=== PATIENT | female | born 1970 | race Caucasian/White ===

== ENCOUNTER → 2016-11-18 | Outpatient (REF) | payer BC, OTHER ==
[~2016-11-18] MED LIST: NAPROXIN PO; SPORANOX PO; VICO5TAB OR
== END ==
LOC: M LAB REF 18:41
PROVIDERS: ATTEND Physician Assistant Medical
DX: J11.1 Influenza due to unidentified influenza virus with other respiratory manifestations (principal)

== ENCOUNTER → 2017-01-22 | Outpatient (CLI) | payer BC, OTHER ==
[2017-01-22 08:42] LABS: MEAN CORPUSCULAR HEMOGLOBIN 29.6 pg (27.0-33.0); MEAN CORPUSCULAR HGB CONC 35.2 g/dl (32.0-36.5); MEAN CORPUSCULAR VOLUME 84.1 fl (80.0-96.0); RED CELL DISTRIBUTION WIDTH 13.3 % (11.5-14.5)
--- NOTE | 2017-01-22 09:09 | REP ---
PA and lateral chest: Comparisons are 12/20/2013 and . There is chronic effacement of the left costophrenic angle, unchanged, likely pleural adhesion. The lung ramires otherwise clear. Cardiac size is normal. The melissa, mediastinum, and bony thorax are unremarkable. 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 Otherwise, essentially negative PA and lateral chest. Signed by Homer Lackey MD 01/22/2017 09:00 A
[2017-01-22 09:23] LABS: ALBUMIN 4.1 GM/DL (3.2-5.2); ALBUMIN/GLOBULIN RATIO 1.11 (1.00-1.93); ALKALINE PHOSPHATASE 126 U/L (45-117); ALT/SGPT 84 U/L (12-78); ANION GAP 2 MEQ/L (8-16); AST/SGOT 45 U/L (15-37); BILIRUBIN,TOTAL 0.4 MG/DL (0.2-1.0); BLOOD UREA NITROGEN 17 MG/DL (7-18); CARBON DIOXIDE LEVEL 35 MEQ/L (21-32); CHLORIDE LEVEL 100 MEQ/L (98-107); CHOLESTEROL LEVEL 123 MG/DL (<200); CREATININE FOR GFR 0.77 MG/DL (0.55-1.02); GLOMERULAR FILTRATION RATE > 60.0 (>58); GLUCOSE, FASTING 92 MG/DL (70-105); POTASSIUM SERUM 3.5 MEQ/L (3.5-5.1); SODIUM LEVEL 137 MEQ/L (136-145); THYROXINE (T4) 18.7 UG/DL (4.5-12.0); TOTAL PROTEIN 7.8 GM/DL (6.4-8.2); TRIGLYCERIDES LEVEL 104 MG/DL (<150)
--- NOTE | 2017-01-22 11:27 | ECGEPIP ---
Stationary ECG Study [facility] Test Date: 2017-01-22 Pat Name: LUIS SAUNDERS Department: Room: - Gender: F Saw Superintendent: JEREMY : 1970 Requested By: Lidia Baker Order Number: [id number] Reading MD: Lalo Aranda Measurements Intervals [place] Rate: 55 P: 72 CT: 157 QRS: -9 QRSD: 109 T: 38 QT: 420 QTc: 404 Interpretive Statements SINUS BRADYCARDIA Rate slightly slower than tracing from 02-16-16 Electronically Signed On 01-22-2017 11:27:18 EDT by aLlo Aranda
== END ==
LOC: M LAB 08:02
PROVIDERS: ATTEND Family Medicine
DX: I10 Essential (primary) hypertension (principal); R53.83 Other fatigue

== ENCOUNTER → 2017-11-05 | Outpatient (CLI) | payer BC, OTHER | LOC: M ADAMS 16:33 | DX: R07.1 Chest pain on breathing (principal) | CPT/HCPCS: 71046 ==

== ENCOUNTER 2018-02-05 09:09 | Emergency (ER) | payer BC, OTHER ==
[2018-02-05 09:40] LABS: BASO % 0.5 % (0.0-1.0); EOS # 0.2 10^3/uL (0.0-0.50); EOS % 2.8 % (0.0-3.0); HEMOGLOBIN 14.8 g/dl (12.0-15.5); IMMATURE GRANULOCYTE % 0.4 % (0-3.0); LYMPH # 2.5 10^3/uL (1.5-4.5); LYMPH % 29.7 % (24.0-44.0); MEAN CORPUSCULAR HEMOGLOBIN 28.7 pg (27.0-33.0); MEAN CORPUSCULAR HGB CONC 34.4 g/dl (32.0-36.5); MEAN CORPUSCULAR VOLUME 83.5 fl (80.0-96.0); MONO # 0.5 10^3/uL (0.0-0.8); MONO % 6.5 % (0.0-5.0); NEUTROPHILS % 60.1 % (36.0-66.0); PLATELET COUNT, AUTOMATED 289 10^3/uL (150-450); RED BLOOD COUNT 5.15 10^6/uL (4.00-5.40); RED CELL DISTRIBUTION WIDTH 12.8 % (11.5-14.5); WHITE BLOOD COUNT 8.3 10^3/uL (4.0-10.0)
[2018-02-05] MEDS: ASPIRIN 81 MG CHEW TABLET PO (09:57)
[2018-02-05 10:16] LABS: ANION GAP 8 MEQ/L (8-16); BLOOD UREA NITROGEN 14 MG/DL (7-18); CALCIUM LEVEL 9.5 MG/DL (8.5-10.1); CARBON DIOXIDE LEVEL 28 MEQ/L (21-32); CHLORIDE LEVEL 105 MEQ/L (98-107); CK-MB VALUE MASS 1.7 NG/ML (<3.6); CPK CREATINE PHOSPHOKINASE 146 U/L (26-192); CREATININE FOR GFR 0.85 MG/DL (0.55-1.30); GLOMERULAR FILTRATION RATE > 60.0 (>58); GLUCOSE, FASTING 138 MG/DL (70-100); MAGNESIUM LEVEL 1.9 MG/DL (1.8-2.4); MB/CK RELATIVE INDEX 1.16 (< OR =4); POTASSIUM SERUM 3.6 MEQ/L (3.5-5.1); SODIUM LEVEL 141 MEQ/L (136-145); TROPONIN I < 0.02 NG/ML (< 0.10)
[2018-02-05] MEDS ORDERED: ISOVUE-370 76% 100ML VIAL (Q9967) As Ordered (10:33)
[2018-02-05 14:35] LABS: CPK CREATINE PHOSPHOKINASE 126 U/L (26-192); TROPONIN I < 0.02 NG/ML (< 0.10)
[2018-02-05 14:36] LABS: CK-MB VALUE MASS 1.7 NG/ML (<3.6); MB/CK RELATIVE INDEX 1.34 (< OR =4)
== END 2018-02-05 15:02 | disposition home or self-care (01) ==
LOC: M ED 09:09
DX: I95.1 Orthostatic hypotension (principal); I10 Essential (primary) hypertension; R91.1 Solitary pulmonary nodule; R91.8 Other nonspecific abnormal finding of lung field; E03.9 Hypothyroidism, unspecified; F33.9 Major depressive disorder, recurrent, unspecified; K80.20 Calculus of gallbladder without cholecystitis without obstruction; Z98.890 Other specified postprocedural states; Z82.49 Family history of ischemic heart disease and other diseases of the circulatory system; Z79.890 Hormone replacement therapy; Z79.899 Other long term (current) drug therapy
CPT/HCPCS: Q9967

== ENCOUNTER → 2018-03-23 | Outpatient (CLI) | payer BC, OTHER ==
[2018-03-23 07:55] LABS: HEMATOCRIT 43.6 % (36.0-47.0); MEAN CORPUSCULAR HEMOGLOBIN 28.6 pg (27.0-33.0); MEAN CORPUSCULAR HGB CONC 34.4 g/dl (32.0-36.5); MEAN CORPUSCULAR VOLUME 83.2 fl (80.0-96.0); PLATELET COUNT, AUTOMATED 314 10^3/uL (150-450); RED BLOOD COUNT 5.24 10^6/uL (4.00-5.40); RED CELL DISTRIBUTION WIDTH 12.7 % (11.5-14.5); WHITE BLOOD COUNT 7.3 10^3/uL (4.0-10.0)
[2018-03-23 08:42] LABS: ALBUMIN 3.7 GM/DL (3.2-5.2); ALBUMIN/GLOBULIN RATIO 0.93 (1.00-1.93); ALKALINE PHOSPHATASE 151 U/L (45-117); ALT/SGPT 66 U/L (12-78); ANION GAP 9 MEQ/L (8-16); AST/SGOT 29 U/L (7-37); BILIRUBIN,TOTAL 0.4 MG/DL (0.2-1.0); BLOOD UREA NITROGEN 15 MG/DL (7-18); CARBON DIOXIDE LEVEL 26 MEQ/L (21-32); CHLORIDE LEVEL 106 MEQ/L (98-107); CHOLESTEROL LEVEL 127 MG/DL (<200); CHOLESTEROL RISK RATIO 3.023 (<5); CREATININE FOR GFR 0.74 MG/DL (0.55-1.30); GLOMERULAR FILTRATION RATE > 60.0 (>58); GLUCOSE, FASTING 97 MG/DL (70-100); HDL CHOLESTEROL 42 MG/DL (>40); LDL CHOLESTEROL 44.2 MG/DL (<100); NON-HDL-C 85 MG/DL; POTASSIUM SERUM 3.6 MEQ/L (3.5-5.1); SODIUM LEVEL 141 MEQ/L (136-145); THYROID STIMULATING HORMONE < 0.005 uIU/ML (0.358-3.740); TOTAL PROTEIN 7.7 GM/DL (6.4-8.2); TRIGLYCERIDES LEVEL 204 MG/DL (<150)
[2018-03-23 10:00] LABS: ESTIMATED AVERAGE GLUCOSE 114 MG/DL (60-110); HEMOGLOBIN A1c 5.6 %
[2018-03-23 10:35] LABS: TOTAL 25(OH) VITAMIN D 30.7 NG/ML (30.0-100.0)
== END ==
LOC: M LAB 06:58
DX: E03.9 Hypothyroidism, unspecified (principal); R53.83 Other fatigue; I10 Essential (primary) hypertension
CPT/HCPCS: 93005

== ENCOUNTER → 2018-10-09 | Outpatient (CLI) | payer BC, OTHER ==
[~2018-10-09] MED LIST changes: +LEVO150T7; +SERT-155; +SIMV20TA2; +TRIA37.53
--- NOTE | 2018-10-10 02:45 | REP ---
Clinical: Recurrent sinusitis. Technique: Mejia, PA, lateral and SMV views. Findings: Four total views demonstrate well-aerated paranasal sinuses and mastoid air cells without mucosal thickening or fluid levels. The osseous structures are intact and normal. No foreign body identified. Impression: Normal sinus study. Electronically Signed by Ken Hutson MD 10/10/2018 02:36 A
== END ==
LOC: M SMT 13:21
PROVIDERS: ATTEND Physician Assistant
DX: J32.9 Chronic sinusitis, unspecified (principal)

== ENCOUNTER → 2018-10-12 | Outpatient (CLI) | payer BC, OTHER ==
[2018-10-12 08:05] LABS: HEMOGLOBIN 15.2 g/dl (12.0-15.5); MEAN CORPUSCULAR HEMOGLOBIN 29.1 pg (27.0-33.0); MEAN CORPUSCULAR HGB CONC 34.5 g/dl (32.0-36.5); MEAN CORPUSCULAR VOLUME 84.1 fl (80.0-96.0); PLATELET COUNT, AUTOMATED 341 10^3/uL (150-450); RED BLOOD COUNT 5.23 10^6/uL (4.00-5.40); WHITE BLOOD COUNT 8.3 10^3/uL (4.0-10.0)
[2018-10-12 08:32] LABS: HEMOGLOBIN A1c 5.9 %
[2018-10-12 08:36] LABS: ALBUMIN 4.1 GM/DL (3.2-5.2); BILIRUBIN,TOTAL 0.4 MG/DL (0.2-1.0); CHOLESTEROL RISK RATIO 4.34 (<5); CREATININE FOR GFR 1.3 MG/DL (0.55-1.30); GLOMERULAR FILTRATION RATE 46.2 (>51); POTASSIUM SERUM 3.8 MEQ/L (3.5-5.1); THYROID STIMULATING HORMONE 0.928 uIU/ML (0.358-3.740); TOTAL PROTEIN 7.8 GM/DL (6.4-8.2)
--- NOTE | 2018-10-12 08:43 | REP ---
Clinical: Primary hypertension . Comparison: 02/05/2018 . Technique: PA and lateral. Findings: The mediastinum and cardiac silhouette are normal. The lung ramires are clear and without acute consolidation, effusion, or pneumothorax. The skeletal structures are intact and normal. Impression: 1. No acute cardiopulmonary process. Electronically Signed by Ken Hutson MD 10/12/2018 08:35 A
--- NOTE | 2018-10-13 21:40 | ECGEPIP ---
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 Electronically Signed On 10-13-2018 21:40:16 EST by Lalo Horta
== END ==
LOC: M LAB 07:32
PROVIDERS: ATTEND Family Medicine
DX: I10 Essential (primary) hypertension (principal); E03.9 Hypothyroidism, unspecified

== ENCOUNTER → 2018-10-16 | Outpatient (CLI) | payer BC, OTHER ==
--- NOTE | 2018-10-16 09:55 | REP ---
MAXILLOFACIAL CT WITHOUT CONTRAST: HISTORY: Recurrent maxillary sinusitis. Mild mucosal thickening is present in the right maxillary sinus. The remaining sinuses are clear. The ostiomeatal units are patent. The middle and inferior nasal turbinates are partially paradoxical. There is minimal deviation of the nasal septum to the left. The cribriform plate, medial samuel of the orbits and optic canals are intact. The carotid canals form a segment of the posterolateral samuel of the sphenoid sinus. The sphenoid sinus septum inserts into the left internal carotid canal wall. IMPRESSION: Sinus mucosal thickening as described above. Electronically Signed by Jose Sanabria MD 10/16/2018 10:05 A
== END ==
LOC: M RAD 08:57
PROVIDERS: ATTEND Family Medicine
DX: J01.01 Acute recurrent maxillary sinusitis (principal)

== ENCOUNTER → 2019-02-23 | Outpatient (CLI) | payer BC, OTHER ==
[2019-02-23 08:15] LABS: HEMATOCRIT 45.4 % (36.0-47.0); HEMOGLOBIN 15.3 g/dl (12.0-15.5); MEAN CORPUSCULAR HEMOGLOBIN 29.4 pg (27.0-33.0); MEAN CORPUSCULAR HGB CONC 33.7 g/dl (32.0-36.5); MEAN CORPUSCULAR VOLUME 87.3 fl (80.0-96.0); PLATELET COUNT, AUTOMATED 310 10^3/uL (150-450); WHITE BLOOD COUNT 7.1 10^3/uL (4.0-10.0)
[2019-02-23 08:51] LABS: HEMOGLOBIN A1c 5.8 %
[2019-02-23 08:56] LABS: ALT/SGPT 71 U/L (12-78); BILIRUBIN,TOTAL 0.3 MG/DL (0.2-1.0); BLOOD UREA NITROGEN 15 MG/DL (7-18); CALCIUM LEVEL 9.7 MG/DL (8.5-10.1); CARBON DIOXIDE LEVEL 27 MEQ/L (21-32); CHLORIDE LEVEL 104 MEQ/L (98-107); CHOLESTEROL LEVEL 166 MG/DL (<200); CREATININE FOR GFR 0.86 MG/DL (0.55-1.30); GLOMERULAR FILTRATION RATE > 60.0 (>51); GLUCOSE, FASTING 106 MG/DL (70-100); HDL CHOLESTEROL 40 MG/DL (>40); LDL CHOLESTEROL 90 MG/DL (<100); NON-HDL-C 126 MG/DL; POTASSIUM SERUM 4.1 MEQ/L (3.5-5.1); SODIUM LEVEL 139 MEQ/L (136-145); TOTAL PROTEIN 7.7 GM/DL (6.4-8.2); TRIGLYCERIDES LEVEL 181 MG/DL (<150)
--- NOTE | 2019-02-23 08:58 | REP ---
Clinical: Hypertension . Comparison: 10/12/2018 . Technique: PA and lateral. Findings: The mediastinum and cardiac silhouette are normal. The lung ramires are clear and without acute consolidation, effusion, or pneumothorax. Postsurgical changes at the left hilar region noted. The skeletal structures are intact and normal. Impression: 1. No acute cardiopulmonary process. Electronically Signed by Ken Hutson MD 02/23/2019 08:51 A
[2019-02-23 10:03] LABS: TOTAL 25(OH) VITAMIN D 20.9 NG/ML (30.0-100.0)
[2019-02-23 10:04] LABS: TOTAL T3 151.4 NG/DL (60.0-181.0)
--- NOTE | 2019-02-23 12:13 | ECGEPIP ---
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
== END ==
LOC: M LAB 07:09
PROVIDERS: ATTEND Family Medicine
DX: I10 Essential (primary) hypertension (principal); E03.9 Hypothyroidism, unspecified

== ENCOUNTER 2019-08-03 06:36 | Emergency (ER) | payer BC, OTHER ==
[~2019-08-03] VITALS: Ht 154.9 cm; Wt 100.0 kg
[2019-08-03 06:36] VITALS: BP 146/92
[~2019-08-03 06:36] MED LIST changes: -SERT-155; +SERT50TA29
[2019-08-03] MEDS ORDERED: CHOL100029 PO (06:48)
[2019-08-03] MEDS ORDERED: TYLETAB14 PO (06:49)
[2019-08-03] MEDS ORDERED: KETOROLAC 30 MG/ML VIAL (J1885) IM ONE (07:00)
[2019-08-03] MEDS ORDERED: KETO10TAB PO (07:45)
[2019-08-03] MEDS ORDERED: ROBA750T4 PO (07:47)
== END 2019-08-03 07:54 | disposition home or self-care (01) ==
LOC: M ED 06:36
DX: M54.42 Lumbago with sciatica, left side (principal); I10 Essential (primary) hypertension; E78.5 Hyperlipidemia, unspecified; E03.9 Hypothyroidism, unspecified; Z79.899 Other long term (current) drug therapy; Z79.890 Hormone replacement therapy
CPT/HCPCS: 96372; 99283; J1885

== ENCOUNTER → 2019-09-17 | Outpatient (CLI) | payer BC, OTHER ==
[~2019-09-17] MED LIST changes: +CHOL100029 PO; +KETO10TAB PO; +ROBA750T4 PO; -SIMV20TA2; +SIMV20TA22; +TYLETAB14 PO
[2019-09-17 14:05] LABS: BASO # 0.1 10^3/uL (0.0-0.2); BASO % 0.9 % (0.0-1.0); EOS # 0.3 10^3/uL (0.0-0.5); EOS % 3.2 % (0.0-3.0); HEMATOCRIT 44.3 % (36.0-47.0); LYMPH # 2.8 10^3/uL (1.5-5.0); LYMPH % 27.7 % (24.0-44.0); MEAN CORPUSCULAR HEMOGLOBIN 30.1 pg (27.0-33.0); MEAN CORPUSCULAR HGB CONC 33.9 g/dl (32.0-36.5); MONO # 0.9 10^3/uL (0.0-0.8); MONO % 8.4 % (0.0-5.0); NEUTROPHILS % 59.3 % (36.0-66.0); PLATELET COUNT, AUTOMATED 378 10^3/uL (150-450); RED BLOOD COUNT 4.98 10^6/uL (4.00-5.40); WHITE BLOOD COUNT 10.1 10^3/uL (4.0-10.0)
[2019-09-17 14:26] LABS: HEMOGLOBIN A1c 6.2 %
[2019-09-17 14:37] LABS: ALBUMIN 4.3 GM/DL (3.2-5.2); ALT/SGPT 152 U/L (12-78); BILIRUBIN,TOTAL 0.4 MG/DL (0.2-1.0); BLOOD UREA NITROGEN 13 MG/DL (7-18); CALCIUM LEVEL 9.2 MG/DL (8.5-10.1); CARBON DIOXIDE LEVEL 27 MEQ/L (21-32); CHLORIDE LEVEL 103 MEQ/L (98-107); CREATININE FOR GFR 0.96 MG/DL (0.55-1.30); GLOMERULAR FILTRATION RATE > 60.0 (>51); GLUCOSE, FASTING 131 MG/DL (70-100); POTASSIUM SERUM 3.9 MEQ/L (3.5-5.1); SODIUM LEVEL 136 MEQ/L (136-145); TOTAL PROTEIN 8.5 GM/DL (6.4-8.2)
== END ==
LOC: M PLALAB 11:55
PROVIDERS: ATTEND Surgery
DX: Z01.812 Encounter for preprocedural laboratory examination (principal); Z86.39 Personal history of other endocrine, nutritional and metabolic disease; I10 Essential (primary) hypertension; E78.5 Hyperlipidemia, unspecified; G47.33 Obstructive sleep apnea (adult) (pediatric); E03.9 Hypothyroidism, unspecified

== ENCOUNTER → 2019-10-09 | Outpatient (CLI) | payer BC, OTHER ==
[2019-10-09 09:47] LABS: HEMATOCRIT 46.6 % (36.0-47.0); HEMOGLOBIN 15.1 g/dl (12.0-15.5); MEAN CORPUSCULAR HEMOGLOBIN 29.2 pg (27.0-33.0); MEAN CORPUSCULAR HGB CONC 32.4 g/dl (32.0-36.5); MEAN CORPUSCULAR VOLUME 90.1 fl (80.0-96.0); PLATELET COUNT, AUTOMATED 287 10^3/uL (150-450); RED BLOOD COUNT 5.17 10^6/uL (4.00-5.40); WHITE BLOOD COUNT 7.7 10^3/uL (4.0-10.0)
[2019-10-09 10:08] LABS: INR 1.07; PROTHROMBIN TIME 13.6 SECONDS (11.8-14.0)
[2019-10-09 12:03] LABS: ALT/SGPT 110 U/L (12-78); BILIRUBIN,TOTAL 0.6 MG/DL (0.2-1.0); BLOOD UREA NITROGEN 13 MG/DL (7-18); CALCIUM LEVEL 9.6 MG/DL (8.5-10.1); CARBON DIOXIDE LEVEL 24 MEQ/L (21-32); CHLORIDE LEVEL 106 MEQ/L (98-107); CHOLESTEROL LEVEL 188 MG/DL (<200); CREATININE FOR GFR 0.93 MG/DL (0.55-1.30); GLOMERULAR FILTRATION RATE > 60.0 (>51); GLUCOSE, FASTING 99 MG/DL (70-100); HDL CHOLESTEROL 39 MG/DL (>40); LDL CHOLESTEROL 114 MG/DL (<100); NON-HDL-C 149 MG/DL; POTASSIUM SERUM 4.1 MEQ/L (3.5-5.1); SODIUM LEVEL 139 MEQ/L (136-145); THYROXINE (T4) 12.6 UG/DL (4.5-12.0); TOTAL PROTEIN 8.3 GM/DL (6.4-8.2); TOTAL T3 134.1 NG/DL (60.0-181.0); TRIGLYCERIDES LEVEL 173 MG/DL (<150)
--- NOTE | 2019-10-09 12:17 | ECGEPIP ---
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 No significant change compared with 02/23/2019. Electronically Signed on 10-09-2019 12:17:04 EST by Lalo Horta
[2019-10-09 15:47] LABS: HEMOGLOBIN A1c 5.8 %
--- NOTE | 2019-10-09 18:39 | REP ---
Chest x-ray: Two views. History: Hypertension. Comparison chest x-ray: February 23, 2019. Findings: There is a post thoracotomy suture line in the left perihilar region unchanged. There is tenting and elevation of the left hemidiaphragm also unchanged consistent with fibrosis. Posterior pleural angles are sharp. Lung ramires are otherwise clear. Heart is not enlarged. Pulmonary vasculature is not increased. Impression: Post thoracotomy changes on the left. No acute disease. Electronically Signed by Yared Hawkins MD 10/09/2019 06:31 P
== END ==
LOC: M LAB 09:17
PROVIDERS: ATTEND Family Medicine
DX: Z01.818 Encounter for other preprocedural examination (principal); I10 Essential (primary) hypertension; E11.9 Type 2 diabetes mellitus without complications

== ENCOUNTER → 2019-11-23 | Outpatient (CLI) | payer BC, OTHER ==
[2019-11-23 16:00] LABS: BASO # 0.1 10^3/uL (0.0-0.2); BASO % 0.7 % (0.0-1.0); EOS # 0.3 10^3/uL (0.0-0.5); EOS % 3.4 % (0.0-3.0); HEMOGLOBIN 14.2 g/dl (12.0-15.5); LYMPH # 2.5 10^3/uL (1.5-5.0); LYMPH % 33.3 % (24.0-44.0); MEAN CORPUSCULAR HEMOGLOBIN 29.6 pg (27.0-33.0); MEAN CORPUSCULAR VOLUME 89.6 fl (80.0-96.0); MONO # 0.7 10^3/uL (0.0-0.8); MONO % 8.9 % (0.0-5.0); NEUTROPHILS % 53.6 % (36.0-66.0); PLATELET COUNT, AUTOMATED 218 10^3/uL (150-450); WHITE BLOOD COUNT 7.4 10^3/uL (4.0-10.0)
[2019-11-23 16:16] LABS: HEMOGLOBIN A1c 5.6 %
[2019-11-23 16:26] LABS: ALBUMIN 4.4 GM/DL (3.2-5.2); ALT/SGPT 55 U/L (12-78); BILIRUBIN,TOTAL 0.5 MG/DL (0.2-1.0); BLOOD UREA NITROGEN 10 MG/DL (7-18); CALCIUM LEVEL 9.7 MG/DL (8.5-10.1); CARBON DIOXIDE LEVEL 30 MEQ/L (21-32); CHLORIDE LEVEL 106 MEQ/L (98-107); CREATININE FOR GFR 0.69 MG/DL (0.55-1.30); FERRITIN 133 NG/ML (8-252); GLOMERULAR FILTRATION RATE > 60.0 (>51); GLUCOSE, FASTING 70 MG/DL (70-100); IRON (FE) 58 UG/DL (50-170); MAGNESIUM LEVEL 2.1 MG/DL (1.8-2.4); PERCENT SATURATION 19.5 % (13.2-45.0); PHOSPHORUS LEVEL 2.7 MG/DL (2.5-4.9); POTASSIUM SERUM 4.3 MEQ/L (3.5-5.1); SODIUM LEVEL 139 MEQ/L (136-145); TOTAL IRON BINDING CAPACITY 298 UG/DL (250-450); TOTAL PROTEIN 7.6 GM/DL (6.4-8.2)
[2019-11-23 16:28] LABS: VITAMIN B12 LEVEL > 2000 PG/ML (247-911)
== END ==
LOC: M PLALAB 11:45
PROVIDERS: ATTEND Surgery
DX: K91.2 Postsurgical malabsorption, not elsewhere classified (principal); Z98.84 Bariatric surgery status; E55.9 Vitamin D deficiency, unspecified; Z86.39 Personal history of other endocrine, nutritional and metabolic disease

== ENCOUNTER → 2020-03-08 | Outpatient (CLI) | payer BC, OTHER ==
[2020-03-08 11:30] LABS: HEMOGLOBIN 14.5 g/dl (12.0-15.5); MEAN CORPUSCULAR HEMOGLOBIN 28.4 pg (27.0-33.0); MEAN CORPUSCULAR HGB CONC 32.2 g/dl (32.0-36.5); MEAN CORPUSCULAR VOLUME 88.2 fl (80.0-96.0); PLATELET COUNT, AUTOMATED 263 10^3/uL (150-450); WHITE BLOOD COUNT 7.1 10^3/uL (4.0-10.0)
[2020-03-08 11:36] LABS: ALT/SGPT 40 U/L (12-78); BILIRUBIN,TOTAL 0.4 MG/DL (0.2-1.0); BLOOD UREA NITROGEN 13 MG/DL (7-18); CALCIUM LEVEL 9.4 MG/DL (8.5-10.1); CARBON DIOXIDE LEVEL 31 MEQ/L (21-32); CHLORIDE LEVEL 108 MEQ/L (98-107); CREATININE FOR GFR 0.75 MG/DL (0.55-1.30); GLOMERULAR FILTRATION RATE > 60.0 (>51); GLUCOSE, FASTING 85 MG/DL (70-100); IRON (FE) 80 UG/DL (50-170); PERCENT SATURATION 26.8 % (13.2-45.0); POTASSIUM SERUM 4.3 MEQ/L (3.5-5.1); SODIUM LEVEL 143 MEQ/L (136-145); TOTAL IRON BINDING CAPACITY 299 UG/DL (250-450); TOTAL PROTEIN 7.6 GM/DL (6.4-8.2)
[2020-03-08 11:40] LABS: PROTHROMBIN TIME 12.9 SECONDS (11.8-14.0)
[2020-03-08 11:41] LABS: PARTIAL THROMBOPLASTIN TIME 34.8 SECONDS (25.0-38.4)
[2020-03-10 10:50] LABS: HEPATITIS B SURFACE ANTIBODY NEGATIVE (POSITIVE)
[2020-03-10 11:01] LABS: HEPATITIS B SURFACE ANTIGEN NEGATIVE (NEGATIVE)
[2020-03-10 11:29] LABS: HEPATITIS C VIRUS ABY INDEX 0.3 INDEX (<0.8)
[2020-03-12 16:08] LABS: A1A FOR PHENOTYPE 81 mg/dL (101-187); ALPHA-1-ANTITRYPSIN PHENOTYPE MZ (.); ANTI-MITOCHONDRIAL ANTIBODY <20.0 Units (0.0-20.0); ANTI-SMOOTH MUSCLE ANTIBODY 11 Units (0-19); ANTINUCLEAR ANTIBODIES DIRECT Negative (Negative); CERULOPLASMIN 26.1 mg/dL (19.0-39.0); TISSUE TRANSGLUTAMINASE IgA <2 U/mL (0-3)
== END ==
LOC: M WUC 08:37
DX: K75.81 Nonalcoholic steatohepatitis (NASH) (principal); B96.81 Helicobacter pylori [H. pylori] as the cause of diseases classified elsewhere

== ENCOUNTER → 2020-03-24 | Outpatient (CLI) | payer BC ==
--- NOTE | 2020-03-24 10:18 | REPMRS ---
Patient History The patient states she had a clinical breast exam in March 2020.Family history of colorectal cancer at age 70 in mother, pancreatic cancer at age 72 in father. Benign stereotactic core biopsy of the right breast. Digital Woman Screen Mammo: March 24, 2020 - Exam #: [id number] Bilateral CC and MLO view(s) were taken. Technologist: Aida Riley, Technologist Prior study comparison: January 28, 2018, bilateral digital woman screen mammo, performed at [facility]. January 28, 2012, bilateral digital woman screen mammo, performed at [facility]. FINDINGS: There are scattered fibroglandular densities. The Volpara volumetric breast density category is:B. A needle biopsy marker clips again noted in the right breast. There has been no change in the appearance of the mammogram from the prior studies. There is a mild amount of scattered fibroglandular density which is fairly symmetric. There is no interval development of dominant mass, architectural distortion, or grouped microcalcification suggestive of malignancy. 3-D tomosynthesis shows no additional findings. Assessment: BI-RADS/ACR category 2 mammogram. Benign Findings. Recommendation Routine screening mammogram of both breasts in 1 year (for women over age 40). This patient's Lifetime Breast Cancer Risk is estimated at 8.4 %. This mammogram was interpreted with the aid of an FDA-approved computer-aided dectection system. Electronically Signed By: Ivan Hawkins MD 03/24/20 1015
== END ==
LOC: M WHC 08:19
PROVIDERS: ATTEND Obstetrics & Gynecology
DX: Z12.31 Encounter for screening mammogram for malignant neoplasm of breast (principal); Z80.0 Family history of malignant neoplasm of digestive organs

== ENCOUNTER → 2021-01-24 | Outpatient (CLI) | payer BC, OTHER ==
[2021-01-24 09:39] LABS: HEMOGLOBIN 14.1 g/dl (12.0-15.5); MEAN CORPUSCULAR HEMOGLOBIN 29.3 pg (27.0-33.0); MEAN CORPUSCULAR HGB CONC 32.8 g/dl (32.0-36.5); MEAN CORPUSCULAR VOLUME 89.2 fl (80.0-96.0); PLATELET COUNT, AUTOMATED 245 10^3/uL (150-450); RED BLOOD COUNT 4.82 10^6/uL (4.00-5.40); WHITE BLOOD COUNT 6.6 10^3/uL (4.0-10.0)
[2021-01-24 09:51] LABS: INR 1.02; PROTHROMBIN TIME 13.6 SECONDS (12.5-14.3)
[2021-01-24 09:52] LABS: PARTIAL THROMBOPLASTIN TIME 30.9 SECONDS (24.2-38.5)
[2021-01-24 10:04] LABS: ALBUMIN 4.2 GM/DL (3.2-5.2); ALT/SGPT 30 U/L (12-78); BILIRUBIN,TOTAL 0.4 MG/DL (0.2-1.0); BLOOD UREA NITROGEN 13 MG/DL (7-18); CALCIUM LEVEL 9.4 MG/DL (8.5-10.1); CARBON DIOXIDE LEVEL 33 MEQ/L (21-32); CHLORIDE LEVEL 107 MEQ/L (98-107); CREATININE FOR GFR 0.68 MG/DL (0.55-1.30); GLOMERULAR FILTRATION RATE > 60.0 (>51); GLUCOSE, FASTING 78 MG/DL (70-100); POTASSIUM SERUM 4.4 MEQ/L (3.5-5.1); SODIUM LEVEL 142 MEQ/L (136-145); TOTAL PROTEIN 7.7 GM/DL (6.4-8.2)
== END ==
LOC: M LAB 08:30
PROVIDERS: ATTEND Internal Medicine Gastroenterology
DX: K75.81 Nonalcoholic steatohepatitis (NASH) (principal)

== ENCOUNTER → 2021-01-24 | Outpatient (CLI) | payer BC, OTHER ==
[2021-01-24 09:39] LABS: HEMATOCRIT 42.9 % (36.0-47.0); MEAN CORPUSCULAR HEMOGLOBIN 28.9 pg (27.0-33.0); MEAN CORPUSCULAR HGB CONC 32.6 g/dl (32.0-36.5); MEAN CORPUSCULAR VOLUME 88.6 fl (80.0-96.0); PLATELET COUNT, AUTOMATED 251 10^3/uL (150-450); RED BLOOD COUNT 4.84 10^6/uL (4.00-5.40); WHITE BLOOD COUNT 6.3 10^3/uL (4.0-10.0)
[2021-01-24 10:10] LABS: ALBUMIN 4.1 GM/DL (3.2-5.2); ALT/SGPT 30 U/L (12-78); BILIRUBIN,TOTAL 0.4 MG/DL (0.2-1.0); BLOOD UREA NITROGEN 14 MG/DL (7-18); CALCIUM LEVEL 9.2 MG/DL (8.5-10.1); CARBON DIOXIDE LEVEL 32 MEQ/L (21-32); CHLORIDE LEVEL 107 MEQ/L (98-107); CHOLESTEROL LEVEL 164 MG/DL (<200); CHOLESTEROL RISK RATIO 2.779 (<5); CREATININE FOR GFR 0.71 MG/DL (0.55-1.30); GLOMERULAR FILTRATION RATE > 60.0 (>51); GLUCOSE, FASTING 80 MG/DL (70-100); HDL CHOLESTEROL 59 MG/DL (>40); LDL CHOLESTEROL 84 MG/DL (<100); NON-HDL-C 105 MG/DL; POTASSIUM SERUM 4.2 MEQ/L (3.5-5.1); SODIUM LEVEL 142 MEQ/L (136-145); THYROID STIMULATING HORMONE 0.639 uIU/ML (0.358-3.740); TOTAL PROTEIN 7.6 GM/DL (6.4-8.2); TRIGLYCERIDES LEVEL 107 MG/DL (<150)
[2021-01-26 07:08] LABS: TOTAL 25(OH) VITAMIN D 27.4 NG/ML (30.0-100.0)
== END ==
LOC: M LAB 08:27
PROVIDERS: ATTEND Family Medicine
DX: D64.9 Anemia, unspecified (principal); R53.83 Other fatigue; E03.9 Hypothyroidism, unspecified

== ENCOUNTER 2021-01-30 00:56 | Emergency (ER) | payer BC, OTHER ==
[~2021-01-30] VITALS: Ht 154.9 cm; Wt 98.9 kg
[2021-01-30 01:28] LABS: BASO # 0.1 10^3/uL (0.0-0.2); BASO % 0.7 % (0.0-1.0); EOS # 0.3 10^3/uL (0.0-0.5); EOS % 2.9 % (0.0-3.0); HEMATOCRIT 44.4 % (36.0-47.0); HEMOGLOBIN 14.8 g/dl (12.0-15.5); LYMPH # 3.7 10^3/uL (1.5-5.0); LYMPH % 42.2 % (24.0-44.0); MEAN CORPUSCULAR HEMOGLOBIN 29.3 pg (27.0-33.0); MEAN CORPUSCULAR HGB CONC 33.3 g/dl (32.0-36.5); MEAN CORPUSCULAR VOLUME 87.9 fl (80.0-96.0); MONO # 0.6 10^3/uL (0.0-0.8); MONO % 6.8 % (2.0-8.0); NEUTROPHILS # 4.1 10^3/uL (1.5-8.5); NEUTROPHILS % 47.2 % (36.0-66.0); PLATELET COUNT, AUTOMATED 258 10^3/uL (150-450); RED BLOOD COUNT 5.05 10^6/uL (4.00-5.40); WHITE BLOOD COUNT 8.7 10^3/uL (4.0-10.0)
[2021-01-30] MEDS ORDERED: ASPIRIN 81 MG CHEW TABLET PO ONE (01:35)
[2021-01-30 02:06] LABS: BLOOD UREA NITROGEN 17 MG/DL (7-18); CALCIUM LEVEL 9.2 MG/DL (8.5-10.1); CARBON DIOXIDE LEVEL 30 MEQ/L (21-32); CHLORIDE LEVEL 106 MEQ/L (98-107); CK-MB VALUE MASS < 1.0 NG/ML (<3.6); CPK CREATINE PHOSPHOKINASE 112 U/L (26-192); CREATININE FOR GFR 0.62 MG/DL (0.55-1.30); GLOMERULAR FILTRATION RATE > 60.0 (>51); GLUCOSE, FASTING 80 MG/DL (70-100); MB/CK RELATIVE INDEX 0.89 (< OR =4); POTASSIUM SERUM 4.1 MEQ/L (3.5-5.1); SODIUM LEVEL 142 MEQ/L (136-145); TROPONIN I < 0.02 NG/ML (< 0.10)
--- NOTE | 2021-01-30 02:23 | REPVR ---
PROCEDURE INFORMATION: Exam: XR Chest Exam date and time: 01/30/2021 1:44 AM Age: 50 years old Clinical indication: Other: Chest pain TECHNIQUE: Imaging protocol: XR of the chest. Views: 1 view. COMPARISON: CR Chest, 2 view PA, Lat 02/23/2019 7:49 AM FINDINGS: Lungs: Unremarkable. No consolidation. Pleural spaces: Unremarkable. No pleural effusion. No pneumothorax. Heart/Mediastinum: Unremarkable. No cardiomegaly. Diaphragm: Elevation of the lateral left hemidiaphragm which is unchanged from the prior study with blunting of the left costophrenic angle consistent with scar. Bones/joints: Unremarkable. IMPRESSION: Stable chest since 02/23/2019. No acute interval process is identified. Electronically signed by: Felix Emery On 01/30/2021 02:23:09 AM
[2021-01-30 05:44] LABS: CK-MB VALUE MASS < 1.0 NG/ML (<3.6); CPK CREATINE PHOSPHOKINASE 102 U/L (26-192); MB/CK RELATIVE INDEX 0.98 (< OR =4); TROPONIN I < 0.02 NG/ML (< 0.10)
[2021-01-30 06:26] VITALS: BP 125/62
--- NOTE | 2021-01-30 09:56 | ECGEPIP ---
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
--- NOTE | 2021-01-30 09:58 | ECGEPIP ---
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
== END 2021-01-30 06:28 | disposition home or self-care (01) ==
LOC: M ED 00:56
DX: R07.89 Other chest pain (principal); E78.5 Hyperlipidemia, unspecified; Z79.899 Other long term (current) drug therapy

== ENCOUNTER → 2021-07-02 | Outpatient (CLI) | payer BC, OTHER ==
--- NOTE | 2021-07-02 08:06 | REP ---
INDICATION: HEP, RUQ PAIN COMPARISON: None. TECHNIQUE: Real time wang scale ultrasound examination using curved array transducer. FINDINGS: Liver is normal in contour, size, and echogenicity without focal hepatic lesions identified. Pancreas is incompletely evaluated due to interposed bowel gas. The gallbladder demonstrates few small mobile gallstones up to 8 mm without wall thickening or pericholecystic fluid. No biliary ductal dilatation is appreciated and the common bile duct measures 2.4 mm diameter. Right kidney is normal in reniform shape without hydronephrosis and measures 9.2 x 5.0 x 4.2 cm. Prominent central pyramids suggests underlying medullary sponge kidney. No ascites in the visualized right upper quadrant. IMPRESSION: 1. Cholelithiasis. 2. 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 <Electronically signed by Ken Hutson > 07/02/21 0802
== END ==
LOC: M RAD 07:03
PROVIDERS: ATTEND Internal Medicine Gastroenterology
DX: K80.20 Calculus of gallbladder without cholecystitis without obstruction (principal); K75.81 Nonalcoholic steatohepatitis (NASH)

== ENCOUNTER 2021-08-21 02:10 | Emergency (ER) | payer BC, OTHER ==
[~2021-08-21] VITALS: Ht 154.9 cm; Wt 74.2 kg
[2021-08-21 02:13] VITALS: BP 182/81
[2021-08-21] MEDS ORDERED: EQL50TAB2 PO (02:18)
--- OUTSIDE RECORDS SUMMARY | 2021-08-21 02:18 | CCD | Continuity of Care Document ---
Author Author Mirian SULLIVAN Organization Unknown Address [address] [place] [id number] Phone [phone] Problems Active Problems Provider Date Left lower quadrant pain Radha Victoria WHNP Onset: 013 Social History Type Date Description Comments Sex Unknown Tobacco Use Start: Unknown End: Unknown Quit ETOH Use Denies alcohol use Recreational Drug Use Denies Drug Use Tobacco Use Start: Unknown End: Unknown Patient is a former smoker Smoking Status Reviewed: 07/15/21 Patient is a former smoker Exercise Type/Frequency Does not exercise Allergies and adverse reactions Active Allergies Criticality Reaction | Severity Comments Date Nkda Unable to assess criticality 10/27/2008 Medications Active Medications SIG Qnty Indications Ordering Provide r Date Omeprazole 20mg Capsules DR mello id Unknown Claritin 10mg Capsules prn Unknown Levothyroxine Sodium 200mcg Tablets Unknown Immunizations Description No Information Available Vital Signs Date Vital Result Comment 07/15/2021 8:33am BP Systolic 122 mmHg BP Diastolic 80 mmHg Height 59.75 inches 4'11.75" Weight 162.00 lb BMI (Body Mass Index) 31.9 kg/m2 BSA (Body Surface Area) 1.70 m2 03/10/2020 8:48am BP Systolic 142 mmHg BP Diastolic 84 mmHg Height 59.75 inches 4'11.75" Weight 159.00 lb BMI (Body Mass Index) 31.3 kg/m2 BSA (Body Surface Area) 1.69 m2 Results Test Acquired Date Facility Test Result H/L Range Note Thinprep W/Reflex HR HPV If Asc-US 07/15/2021 Propa th TP Reflex HPV ASCUS Normal Normal 1 TP Reflex HPV ASCUS SEE IMAGE 1 SPECIME N PART A. Cervical, Endocervical, ThinPrep Pap (Finished Garment Inspector) CYTOLOGY HX-------- Date of Last Menstrual Period: ablation Other Information:Previous Normal Pap: 03/10/20 Ablation FINAL DIAGNOSIS---- INTERPRETATION: Negative for Intraepithelial Lesion or Malignancy. SPECIMEN ADEQUACY:Satisfactory for evaluation. The preparation is of borderline squamous cellularity, with abundant background inflammation. Inflammation can interfere with specimen processing, resulting in low squamous cellularity. Procedures Date Code Description Status 07/15/2021 04091 Preventive Visit Est 40-64 Yrs C ompleted 03/24/2020 12992469 Mammogram Completed 01/24/2018 [id number] Mammogram Completed 12/02/2008 [id number] Mammogram Completed Medical Devices Description No Information Available Encounters Type Date Location Provider Dx Diagnosis Office Visit 07/15/2021 11:30a [facility] surgical tech Oma Sullivan MD Z0 1.419 Encntr for energy assistant exam (general) (routine) w/o abn findings Z12.4 Encounter for screening for malignant neoplasm of cervix Z12.39 Encounter for oth screening for malignant neoplasm of breast Assessments Date Code Description Provider 07/15/2021 Z01.419 Encounter for gyneco logical examination (general) (routine) without abnormal findings Oma Sullivan MD 07/15/2021 Z12.4 Encounter for screening for magi gnant neoplasm of cervix Oma Sullivan MD 07/15/2021 Z12.39 Encounter for other screening for malignant neoplasm of breast Oma Sullivan MD Plan of Treatment Future Appointment(s):* 07/16/2022 2:00 pm - Oma Sullivan MD at [facility] surgical tech 07/15/2021 - Oma Sullivan MD* Z01.419 Encounter for gynecological examination (general) (routine) without abnormal findings * Z12.4 Encounter for screening for malignant neoplasm of cervix * Z12.39 Encounter for other screening for malignant neoplasm of breast Functional Status Description No Information Available Mental Status Description No Information Available Referrals Description No Information Available
--- OUTSIDE RECORDS SUMMARY | 2021-08-21 02:19 | CCD ---
Author Author [facility] Organization [facility] Address Unknown Phone Unavailable Care Team Providers Care Environmental Health Officer Name Role Phone Kari SULLIVAN MD Unavailable Unavailable Kari SULLIVAN MD Unavailable Unavailable LAURIE, Kari BIRD MD Unavailable Unavailable LAURIE, L MARGE SALOMON Unavailable Unavailable LAURIE, L MARGE SALOMON Unavailable Unavailable Kari SULLIVAN MD Unavailable Unavailable Kari SULLIVAN MD Unavailable Unavailable Kari SULLIVAN MD Unavailable Unavailable Kari SULLIVAN MD Unavailable Unavailable Kari SULLIVAN MD Unavailable Unavailable Kari SULLIVAN MD Unavailable Unavailable LAURIE L MARGE SALOMON Unavailable Unavailable Kari SULLIVAN MD Unavailable Unavailable Kari SULLIVAN MD Unavailable Unavailable Kari SULLIVAN MD Unavailable Unavailable Kari SULLIVAN MD Unavailable Unavailable Kari SULLIVAN MD Unavailable Unavailable Kari SULLIVAN MD Unavailable Unavailable LAURIE, L MARGE SALOMON Unavailable Unavailable LAURIE, L MARGE SALOMON Unavailable Unavailable Kari SULLIVAN MD Unavailable Unavailable Kari SULLIVAN MD Unavailable Unavailable Kari SULLIVAN MD Unavailable Unavailable Kari SULLIVAN MD Unavailable Unavailable Kari SULLIVAN MD Unavailable Unavailable Kari SULLIVAN MD Unavailable Unavailable Kari SULLIVAN MD Unavailable Unavailable Kari SULLIVAN MD Unavailable Unavailable Kari SULLIVAN MD Unavailable Unavailable Kari SULLIVAN MD Unavailable Unavailable Kari SULLIVAN MD Unavailable Unavailable Kari SULLIVAN MD Unavailable Unavailable Kari SULLIVAN MD Unavailable Unavailable Kari SULLIVAN MD Unavailable Unavailable Kari SULLIVAN MD Unavailable Unavailable Kari SULLIVAN MD Unavailable Unavailable Kari SULLIVAN MD Unavailable Unavailable Kari SULLIVAN MD Unavailable Unavailable Kari SULLIVAN MD Unavailable Unavailable Kari SULLIVAN MD Unavailable Unavailable Kari SULLIVAN MD Unavailable Unavailable Kari SULLIVAN MD Unavailable Unavailable Kari SULLIVAN MD Unavailable Unavailable Kari SULLIVAN MD Unavailable Unavailable Kari SULLIVAN MD Unavailable Unavailable Rosie Gupta MD Unavailable Unavailable Rosie Gupta MD Unavailable Unavailable Rosie Gupta MD Unavailable Unavailable Rosie Gupta MD Unavailable Unavailable Rosie Gupta MD Unavailable Unavailable Rosie Gupta MD Unavailable Unavailable Rosie Gupta MD Unavailable Unavailable Rosie Gupta MD Unavailable Unavailable Rosie Gupta MD Unavailable Unavailable Rosie Gupta MD Unavailable Unavailable Rosie Gupta MD Unavailable Unavailable Rosie Gupta MD Unavailable Unavailable Rosie Gupta MD Unavailable Unavailable Rosie Gupta MD Unavailable Unavailable Rosie Gupta MD Unavailable Unavailable Rosie Gupta MD Unavailable Unavailable Rosie Gupta MD Unavailable Unavailable Rosie Gupta MD Unavailable Unavailable Rosie Gupta MD Unavailable Unavailable Rosie Gupta MD Unavailable Unavailable Rosie Gupta MD Unavailable Unavailable Rosie Gupta MD Unavailable Unavailable Rosie Gupta MD Unavailable Unavailable Rosie Gupta MD Unavailable Unavailable Rosie Gupta MD Unavailable Unavailable Rosie Gupta MD Unavailable Unavailable Rosie Gupta MD Unavailable Unavailable Rosie Gupta MD Unavailable Unavailable Rosie Gupta MD Unavailable Unavailable Rosie Gupta MD Unavailable Unavailable Rosie Gupta MD Unavailable Unavailable Rosie Gupta MD Unavailable Unavailable Rosie Gupta MD Unavailable Unavailable Rosie Gupta MD Unavailable Unavailable Rosie Gupta MD Unavailable Unavailable Rosie Gupta MD Unavailable Unavailable Rosie Gupta MD Unavailable Unavailable Rosie Gupta MD Unavailable Unavailable Rosie Gupta MD Unavailable Unavailable Rosie Gupta MD Unavailable Unavailable Rosie Gupta MD Unavailable Unavailable Alonso, C Bo MD Unavailable Unavailable Alonso, C Bo MD Unavailable Unavailable Alonso, C Bo MD Unavailable Unavailable Alonso, C Bo MD Unavailable Unavailable Alonso, C Bo MD Unavailable Unavailable Alonso, C Bo MD Unavailable Unavailable Alonso, C Bo MD Unavailable Unavailable Alonso, C Bo MD Unavailable Unavailable Alonso, C Bo MD Unavailable Unavailable Alonso, C Bo MD Unavailable Unavailable Alonso, C Bo MD Unavailable Unavailable Alonso, C Bo MD Unavailable Unavailable Alonso, C Bo MD Unavailable Unavailable Alonso, C Bo MD Unavailable Unavailable Alonso, C Bo MD Unavailable Unavailable Alonso, C Bo MD Unavailable Unavailable Alonso, C Bo MD Unavailable Unavailable Alonso, C Bo MD Unavailable Unavailable Alonso, C Bo MD Unavailable Unavailable Alonso, C Bo MD Unavailable Unavailable Alonso, C Bo MD Unavailable Unavailable Alonso, C Bo MD Unavailable Unavailable Alonso, C Bo MD Unavailable Unavailable Re-disclosure Warning The records that you are about to access may contain information from federally-assisted alcohol or drug abuse programs. If such information is present, then the following federally mandated warning applies: This information has been disclosed to you from records protected by federal confidentiality rules (42 CFR part 2). The federal rules prohibit you from making any further disclosure of this information unless further disclosure is expressly permitted by the written consent of the person to whom it pertains or as otherwise permitted by 42 CFR part 2. A general authorization for the release of medical or other information is NOT sufficient for this purpose. The Federal rules restrict any use of the information to criminally investigate or prosecute any alcohol or drug abuse patient.The records that you are about to access may contain highly sensitive health information, the redisclosure of which is protected by Article 27-F of the [facility] Public Health law. If you continue you may have access to information: Regarding HIV / AIDS; Provided by facilities licensed or operated by the [facility] Office of Mental Health; or Provided by the [facility] Office for People With Developmental Disabilities. If such information is present, then the following [facility] mandated warning applies: This information has been disclosed to you from confidential records which are protected by state law. State law prohibits you from making any further disclosure of this information without the specific written consent of the person to whom it pertains, or as otherwise permitted by law. Any unauthorized further disclosure in violation of state law may result in a fine or intermediate sentence or both. A general authorization for the release of medical or other information is NOT sufficient authorization for further disc losure. Family History Family Member Name Family Member Gender Family Member Status Date o f Status Description Data Source(s) Unknown Unknown Problem [facility] ([place] [facility]) Unknown Male Problem [facility] ([facility] () Unknown Male Problem [facility] ([facility]) Unknown Male Problem [facility] ([facility]) Unknown Male Problem [facility] ([facility]) Unknown Female Problem [facility] ([facility] Encounters Encounter Providers Location Date Indications Data Source(s ) Outpatient Attender: MARGE SULLIVAN MD [place]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 11:30:00 AM EDT [facility] ([place] [facility]) Outpatient Attender: Bo Gupta MD [place] [address] 06/26/2021 08:15:00 AM EDT [facility] ([facility]) Outpatient Attender: Bo Gupta MD [place] [address] 01/13/2021 08:45:00 AM EDT [facility] ([facility]) Immunizations Vaccine Date Status Description Data Source(s) COVID-19 VACCINE [email or web address] 01/02/2021 12:00:00 AM EDT completed [facility] Vaccine Series Complete: YESThis Data wa s Submitted to [facility] [employer]. COVID-19 VACCINE [email or web address] 12/12/2020 12:00:00 AM EST completed [facility] Vaccine Series Complete: NOThis Data was Submitted to [facility] [employer]. Medications Medication Brand Name Start Date Product Form Dose Route Admi nistrative Instructions Pharmacy Instructions Status Indications Reaction Description Data Source(s) 50 mg 04/21/2021 12:00:00 AM EDT tablet 90 TAKE ONE TABLET BY MOUTH EVERY DAY TAKE ONE TABLET BY MOUTH EVERY DAY SOLD: 05/07/2021 [facility] 20 mg 04/21/2021 12:00:00 AM EDT tablet 90 TAKE ONE TABLET BY MOUTH EVERY DAY TAKE ONE TABLET BY MOUTH EVERY DAY SOLD: 05/07/2021 [facility] 100 mcg 04/21/2021 12:00:00 AM EDT tablet 90 TAKE ONE TABLET BY MOUTH EVERY DAY TAKE ONE TABLET BY MOUTH EVERY DAY SOLD: 05/07/2021 [facility] 20 mg 02/01/2021 12:00:00 AM EDT tablet 90 TAKE ONE TABLET BY MOUTH EVERY DAY TAKE ONE TABLET BY MOUTH EVERY DAY SOLD: 02/01/2021 [facility] 50 mg 02/01/2021 12:00:00 AM EDT tablet 90 TAKE ONE TABLET BY MOUTH EVERY DAY TAKE ONE TABLET BY MOUTH EVERY DAY SOLD: 02/01/2021 [facility] 100 mcg 02/01/2021 12:00:00 AM EDT tablet 90 TAKE ONE TABLET BY MOUTH EVERY DAY TAKE ONE TABLET BY MOUTH EVERY DAY SOLD: 02/01/2021 [facility] 50 mg 10/07/2020 12:00:00 AM EST tablet 90 TAKE ONE TABLET BY MOUTH EVERY DAY TAKE ONE TABLET BY MOUTH EVERY DAY SOLD: 10/07/2020 [facility] 100 mcg 10/07/2020 12:00:00 AM EST tablet 90 TAKE ONE TABLET BY MOUTH EVERY DAY TAKE ONE TABLET BY MOUTH EVERY DAY SOLD: 10/07/2020 [facility] 20 mg 10/07/2020 12:00:00 AM EST tablet 90 TAKE ONE TABLET BY MOUTH EVERY DAY TAKE ONE TABLET BY MOUTH EVERY DAY SOLD: 10/07/2020 [facility] 50 mg 06/26/2020 12:00:00 AM EDT tablet 90 TAKE ONE TABLET BY MOUTH EVERY DAY TAKE ONE TABLET BY MOUTH EVERY DAY SOLD: 06/30/2020 [facility] 100 mcg 06/26/2020 12:00:00 AM EDT tablet 90 TAKE ONE TABLET BY MOUTH EVERY DAY TAKE ONE TABLET BY MOUTH EVERY DAY SOLD: 06/30/2020 [facility] 20 mg 06/26/2020 12:00:00 AM EDT tablet 90 TAKE ONE TABLET BY MOUTH EVERY DAY TAKE ONE TABLET BY MOUTH EVERY DAY SOLD: 06/30/2020 [facility] Multiple Vitamins-Iron (MULTIVITAMIN WITH IRON) TABS 0904-05 31-60 10/19/2019 12:00:00 AM EST 2 {tbl} Oral active Take 2 tablets by mouth daily [facility] Insurance Providers Payer name Policy type / Coverage type Policy ID Covered constitution party ID Covered constitution party's relationship to cruz Policy Cruz Plan Information EMPIRE PLAN [id number] Spouse [id number] [place] [facility] Health Maintenance Organization (HMO) [id number] BC EMPIRE SVETLANA DIV [id number] [facility] [id number] [facility] [id number] [place] Plan F [id number] SPOUSE [id number] EXCELLUS BCBS [id number] Spo [id number] [id number] EXCELLUS BCBS [id number] [id number] [employer] [id number] 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 [id number] 01 [id number] 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 [id number] 18 [id number] [facility] [place] Plan Health Maintenance Organization (HMO) [id number] Family Dependent [id number] BCBS EMPIRE SVETLANA DIV [id number] HU2 [id number] [facility] [place] Commercial [id number] Family Dependent [id number] [facility] [place] Health Maintenance Organization (HMO) [id number] Family Dependent [id number] [facility] [place] Commercial [id number] Family Dependent [id number] [facility] [place] Commercial [id number] Family Dependent [id number] [facility] [place] Commercial [id number] Family Dependent [id number] [employer]-O/P [id number] 18 [id number] [facility] [place] Commercial [id number] Family Depende nt [id number] EMPIRE BLUE CROSS BLUE SHIELD - OP [id number] EMPIRE (STATE EMP) P [id number] P [id number] [employer] P [id number] S [id number] [employer] [id number] [id number] EMPIRE (STATE EMP) O [id number] S [id number] [facility] O [id number] Problems, Conditions, and Diagnoses No Information Surgeries/Procedures Procedure Description Date Indications Data Source(s) PERIODIC PREVENTIVE MED EST PATIENT 40-64YRS 12:00:00 AM EDT [facility] ([facility]) OFFICE OUTPATIENT VISIT 25 MINUTES 06/26/2021 12:00:00 AM EDT [facility] ([facility]) Mo-Insurance Refund 01/28/2021 12:00:00 AM EDT [facility] ([facility]) OFFICE OUTPATIENT VISIT 15 MINUTES 01/13/2021 12:00:00 AM EDT [facility] ([facility]) Results ID Date Data Source [id number] 07/15/2021 12:00:00 PM EDT [facility] ([facility] [place] [facility]) Name Value Range Interpretation Code Description Data Jennifer rce(s) Supporting Document(s) TP Reflex HPV ASCUS Laboratory test result [facility] ([facility] [place] [facility]) TP Reflex HPV ASCUS Laboratory test result [facility] ([facility] [place] [facility]) SPECIMEN PART------ A. 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 SPECIMEN ADEQUACY:Satisfactory for evaluation. The preparation is of borderline squamous cellularity, with abundant background inflammation. Inflammation can interfere with specimen processing, resulting in low squamous cellularity. ID Date Data Source [id number] 06/26/2021 09:57:00 AM EDT [facility] ([facility]) Name Value Range Interpretation Code Description Data Jennifer rce(s) Supporting Document(s) aPTT in Platelet poor plasma by Coagulation assay 28.1 s 22.0-34. 3 [facility] ([facility]) ID Date Data Source [id number] 06/26/2021 09:57:00 AM EDT [facility] ([facility]) Name Value Range Interpretation Code Description Data Jennifer rce(s) Supporting Document(s) INR in Platelet poor plasma by Coagulation assay 1.00 [facility] ([facility]) SUGGESTED THERAPEUTIC RANGES USING INR F OR STABILIZED ANTICOAGULATED PATIENTS: STANDARD DOSE THERAPY INR 2.0-3.0 DVT, PE, PREVENT DVT OR EMBOLISM HIGH DOSE THERAPY INR 2.5-3.5 PREVENT EMBOLISM FROM MECHANICAL HEART VALVE Prothrombin time (PT) 10.7 s 9.2-11.9 MED E[facility] ([facility]) ID Date Data Source [id number] 06/26/2021 09:57:00 AM EDT [facility] ([facility]) Name Value Range Interpretation Code Description Data Jennifer rce(s) Supporting Document(s) [id number] [Mass/volume] in Serum or Plasma 3.7 ng/mL [facility] ([facility]) ASSAY BY IMMUNOCHEMILUMINOMETRIC ASSAY ON THE SIEMENS IMMULITE 2000 XPi. VALUES OBTAINED WITH DIFFERENT METHODS OR KITS CANNOT BE USED INTERCHANGEABLY FOR PATIENT MONITORING. RESULTS CANNOT BE INTERPRETED ABSOLUTE EVIDENCE OF THE PRESENCE OR ABSENCE OF MALIGNANCY. THE TEST IS NOT INTERPRETABLE IN . AFP CAN BE INCREASED IN A VARIETY OF BENIGN DISEASES. SPECIFICITY FOR THE DETECTION OF MALIGNANCY INCREASES WITH INCREASING LEVELS. ID Date Data Source [id number] 06/26/2021 09:57:00 AM EDT [facility] ([facility]) Name Value Range Interpretation Code Description Data Jennifer rce(s) Supporting Document(s) Sodium [Moles/volume] in Serum or Plasma 140 mmol/L 136-145 [facility] ([facility]) Potassium [Moles/volume] in Serum or Plasma 4.1 mmol/L 3.6-5.2 [facility] ([facility]) Chloride [Moles/volume] in Serum or Plasma 107 mmol/L 100-108 [facility] ([facility]) Carbon dioxide, total [Moles/volume] in Serum or Plasma 29 mmol/L 22 -31 [facility] Anion gap 3 in Serum or Plasma 4 mmol/L 7-16 [facility] ([facility] Creatinine [Mass/volume] in Serum or Plasma 0.68 mg/dL 0.60-1.00 [facility] ([facility] Urea nitrogen/Creatinine [Mass Ratio] in Serum or Plasma 23.5 RATIO 10.0-20.0 [facility] ([facility]) Urea nitrogen [Mass/volume] in Serum or Plasma 16 mg/dL 7-24 [facility] ([facility] Calcium [Mass/volume] in Serum or Plasma 9.3 mg/dL 8.4-10.2 [facility] ([facility] Glucose [Mass/volume] in Serum or Plasma 76 mg/dL 70-99 [facility] ([facility] Albumin [Mass/volume] in Serum or Plasma 4.0 g/dL 3.5-4.6 [facility] ([facility] Protein [Mass/volume] in Serum or Plasma 7.3 g/dL 6.4-8.2 [facility] ([facility] Globulin [Mass/volume] in Serum 3.3 g/dL 2.7-4.3 [facility] ([facility] Bilirubin.total [Mass/volume] in Serum or Plasma 0.3 mg/dL 0.0-1.0 [facility] ([facility] PLEASE NOTE: Total bilirubin results may be falsely elevated in patients taking Eltrombopag. Alkaline phosphatase [Enzymatic activity/volume] in Serum or Plasma 140 U/L 45-117 [facility] Albumin/Globulin [Mass Ratio] in Serum or Plasma 1.2 RATIO [facility] ([facility] Alanine aminotransferase [Enzymatic activity/volume] in Seru m or Plasma 29 U/L 12-78 [facility] ([facility] Aspartate aminotransferase [Enzymatic activity/volume] in Serum or Plasma 25 U/L 11-39 [facility] ([facility]) GFR Interpretation Laboratory test result [facility] ([facility]) <content></content>
<content> </con tent>
<content>NORMAL KIDNEY FUNCTION</content>
<content> OR MILD DISEASE - GFR >OR= 60</content>
<content>CHRONIC KIDNEY DISEASE - GFR 15 - 59</content>
<content>RENAL FAILURE - GFR <15</content>
<content> </content>< br/><content>Est. GFR calculation based on the MDRD</content>
<content>study equation, which assumes a steady</content>
<content>state for creatinine. Est. GFR should not</content>
<content>be used for medication dosing.</content>
<content></content> Glomerular filtration rate/1.73 sq M pre dicted among blacks [Volume Rate/Area] in Serum or Plasma by Creatinine-based formula (MDRD) Laboratory test result [facility] ([facility]) Glomerular filtration rate/1.73 sq M.pre dicted [Volume Rate/Area] in Serum or Plasma by Creatinine-based formula (MDRD) Laboratory test result [facility] ([facility]) ID Date Data Source [id number] 06/26/2021 09:57:00 AM EDT [facility] ([facility]) Name Value Range Interpretation Code Description Data Jennifer rce(s) Supporting Document(s) Erythrocytes [#/volume] in Blood by Automated count 4.60 10*6/uL 4.00 -5.40 [facility] ([facility]) Leukocytes [#/volume] in Blood by Automated count 7.5 10*3/uL 4.1-11. 0 [facility] ([facility]) Hematocrit [Volume Fraction] of Blood by Automated count 40.1 % 3 6.0-47.0 [facility] ([facility]) Hemoglobin [Mass/volume] in Blood 13.6 g/dL 12.0-16.0 [facility] ([facility]) Erythrocyte mean corpuscular hemoglobin [Entitic mass] by Automated count 29.6 pg 27.0-32.0 [facility] ([facility]) Erythrocyte mean corpuscular volume [Entitic volume] by Auto mated count 87.1 fL 80.0-95.0 [facility] ([facility]) Erythrocyte mean corpuscular hemoglobin concentration [Mass/volume] by Automated count 34.1 g/dL 32.0-36.0 [facility] ([facility]) Platelets [#/volume] in Blood by Automated count 249 10*3/uL 150-450 [facility] ([facility]) Erythrocyte distribution width [Ratio] by Automated count 13.0 % 10.5-14.5 [facility] ([facility]) Platelet mean volume [Entitic volume] in Blood by Automated count 8.1 fL 7.1-10.7 [facility] ([facility]) ID Date Data Source [id number] 06/26/2021 11:49:12 AM EDT [facility] Name Value Range Interpretation Code Description Data Jennifer rce(s) Supporting Document(s) WBC 7.5 10*3/uL (4.1-11.0) [facility] RBC 4.60 10*6/uL (4.00-5.40) [facility] HGB 13.6 g/dL (12.0-16.0) [facility] HCT 40.1 % (36.0-47.0) [facility] MCV 87.1 fL (80.0-95.0) [facility] MCH 29.6 pg (27.0-32.0) [facility] MCHC 34.1 g/dL (32.0-36.0) [facility] RDW 13.0 % (10.5-14.5) [facility] PLT 249 10*3/uL (150-450) [facility] MPV 8.1 fL (7.1-10.7) [facility] [place] [facility] ID Date Data Source [id number] 06/26/2021 12:26:00 PM EDT [facility] Name Value Range Interpretation Code Description Data Jennifer rce(s) Supporting Document(s) SODIUM 140 mmol/L (136-145) [facility] [place] [facility] POTASSIUM 4.1 mmol/L (3.6-5.2) [facility] [place] [facility] CHLORIDE 107 mmol/L (100-108) [facility] [place] [facility] CO2 29 mmol/L (22-31) [facility] [place] [facility] ANION GAP 4 mmol/L (7-16) L [facility] [place] [facility] UREA NITROGEN 16 mg/dL (7-24) [facility] CREATININE 0.68 mg/dL (0.60-1.00) [facility] BUN/CREAT RATIO 23.5 RATIO (10.0-20.0) H [facility] [place] [facility] GLUCOSE 76 mg/dL (70-99) [facility] [place] [facility] CALCIUM 9.3 mg/dL (8.4-10.2) [facility] [place] [facility] TOTAL PROTEIN 7.3 g/dL (6.4-8.2) [facility] ALBUMIN 4.0 g/dL (3.5-4.6) [facility] [place] [facility] GLOBULIN 3.3 g/dL (2.7-4.3) [facility] [place] [facility] ALB/GLOB RATIO 1.2 RATIO [facility] ALKALINE PHOSPHATASE 140 U/L (45-117) H [facility]ator [facility] [place] [facility] BILIRUBIN,TOTAL 0.3 mg/dL (0.0-1.0) [facility] PLEASE NOTE:Total bilirubin results may be falselyelevated in patients taking Eltrombopag. AST (SGOT) 25 U/L (11-39) Laboratory [place] [facility] ALT (SGPT) 29 U/L (12-78) Laboratory [place] [facility] GFR >60 ml/min/1.73m2 (>59) Laboratory [facility] [employer] [facility] [employer] GFR ( AMER) >60 ml/min/1.73m2 (>59) Laboratory [place] [facility] GFR INTERPRETATION Laboratory [place] [facility] --NORMAL KIDNEY FUNCTION OR MILD DISEASE - GFR >OR= 60CHRONIC KIDNEY DISEASE - GFR 15 - 59RENAL FAILURE - GFR <15 Est. GFR calculation based on the MDRDstudy equation, which assumes a steadystate for creatinine. Est. GFR should notbe used for medication dosing. ID Date Data Source [id number] 06/26/2021 12:28:30 PM EDT [facility] Name Value Range Interpretation Code Description Data Jennifer rce(s) Supporting Document(s) APTT 28.1 s (22.0-34.3) [facility] ID Date Data Source [id number] 06/26/2021 12:28:30 PM EDT [facility] Name Value Range Interpretation Code Description Data Jennifer rce(s) Supporting Document(s) PT 10.7 s (9.2-11.9) Laboratory [place] [facility] INR 1.00 Laboratory [place] [facility] SUGGESTED THERAPEUTIC RANGES USING INR F ORSTABILIZED ANTICOAGULATED PATIENTS:STANDARD DOSE THERAPY INR 2.0-3.0 DVT, PE, PREVENT DVT OR EMBOLISMHIGH DOSE THERAPY INR 2.5-3.5 PREVENT EMBOLISM FROM MECHANICAL HEART VALVE ID Date Data Source [id number] 06/26/2021 04:15:59 PM EDT [facility] Name Value Range Interpretation Code Description Data Jennifer rce(s) Supporting Document(s) AFP-TUMOR MARKER @ 3.7 ng/mL (<6.0) Laboratory [place] [facility] - CORE ASSAY BY IMMUNOCHEMILUMINOMETRIC ASSAYON THE SIEMENS IMMULITE 2000 XPi. VALUESOBTAINED WITH DIFFERENT METHODS OR KITSCANNOT BE USED INTERCHANGEABLY FOR PATIENTMONITORING. RESULTS CANNOT BE INTERPRETEDAS ABSOLUTE EVIDENCE OF THE PRESENCE ORABSENCE OF MALIGNANCY. THE TEST IS NOTINTERPRETABLE IN . AFP CAN BE INCREASED IN A VARIETY OFBENIGN DISEASES. SPECIFICITY FOR THE DETECTION OF MALIGNANCY INCREASES WITHINCREASING LEVELS. ID Date Data Source [id number] 01/24/2021 09:03:00 AM EDT [facility] ([facility]) Name Value Range Interpretation Code Description Data Jennifer rce(s) Supporting Document(s) Fibrosis Score 0.23 0.00-0.21 [facility] ([facility]) Fibrosis Stage Laboratory test result [facility] ([facility]) Steatosis Score 0.22 0.00-0.30 [facility] ([facility]) Steatosis Grade Laboratory test result [facility] ([facility]) S0 - No Steatosis Toth Score 0.25 [facility] ([facility]) Toth Grade Laboratory test result ME DENT ([facility]) N0 - Not TOTH Height 61 in [facility] ([facility]) Haptoglobin 74 mg/dL 33-346 [facility] ([facility]) Weight 150 LBS [facility] ([facility]) Laboratory test finding (navigational concept) 281 mg/dL 110-276 [facility] ([facility]) Bilirubin, Total 0.4 mg/dL 0.0-1.2 [facility] ( [facility]) GGT 10 IU/L 0-60 [facility] ([facility]) Apolipoprotein A-1 152 mg/dL 116-209 [facility] ([facility]) Ast (Sgot) P5P 26 IU/L 0-40 [facility] ([facility]) Alt (SGPT) P5P 20 IU/L 0-40 [facility] ([facility]) Glucose, Serum 82 mg/dL 65-99 [facility] ([facility]) Laboratory test finding (navigational concept) 161 mg/dL 100-199 [facility] ([facility]) Laboratory test finding (navigational concept) Laboratory test result [facility] ([facility]) <content>.</content>
<content>Quanti tative results of 10 biochemicals in combination with</content>
<content>age, gender, height, and weight, are analyzed using a</content>
<content>computational algorithm to provide a quantitative surrogate</content>
<content>marker (0.0-1.0) of liver fibrosis (Metavir F0-F4), hepatic</content>
<content>steatosis (0.0-1.0, S0-S3), and Non-Alcoholic Steato-</content>
<content>Hepatitis (TOTH) (0.0-0.75, N0-N2). The absence of steatosis</content>
<content>(S<0.38) precludes the diagnosis of TOTH.</content>
<content>.</content>
<content>Fibrosis marker: In a study of 171 Non-Alcoholic Fatty</content>
<content>Liver Disease (NAFLD) patients where 23% had significant</content>
<content>NAFLD fibrosis (Metavir F2-F4) and 11% had cirrhosis by</content>
<content>liver biopsy, a fibrosis result of >0.3 yielded a</content>
<content>sensitivity of 83% and a specificity of 78% for the</content>
<content>detection of significant fibrosis(1).</content>
<content>.</content>
<content>Steatosis Marker: In a population of 744 patients (583 HCV,</content>
<content>18 HBV, 69 NAFLD, and 74 alcoholic disease patients), where</content>
<content>36% had significant steatosis (>5%) on a liver biopsy, a</content>
<content>steatosis score >0.5 had a sensitivity of 71% and a</content>
<content>specificity of 72% for identification of significant</content>
<content>steatosis(2).</content>
<content>.</blanca nt>
<content>TOTH marker: In a population of 257 NAFLD patients, where</content>
<content>62% had at least some TOTH by liver biopsy, a prediction of</content>
<content>TOTH had a sensitivity of 88% for identifying TOTH and a</content>
<content>specificity of 50%(3).</content>
<content>.</content>
<content></content> Triglycerides 111 mg/dL 0-149 [facility] ([facility]) Steatosis Grading Laboratory test result [facility] ([facility]) <content>.</content>
<content>< 0.30 = S0 - No Steatosis</content>
<content>0.30 to 0.38 = S0 - S1</content>
<content>0.38 to 0.48 = S1 - Minimal Steatosis</content>
<content>0.48 to 0.57 = S1 - S2</content>
<content>0.57 to 0.67 = S2 - Moderate Steatosis</content>
<content>0.67 to 0.69 = S2 - S3</content>
<content>> 0.69 = S3 - Marked or Severe Steatosis</content>
<content></content> Fibrosis Scoring Laboratory test result [facility] ([facility]) <content>.</content>
<content><0.21 = Stage F0 - No fibrosis</content>
<content>0.21 - 0.27 = Stage F0 - F1</content>
<content>0.27 - 0.31 = Stage F1 - Portal fibrosis</content>
<content>0.31 - 0.48 = Stage F1 - F2</content>
<content>0.48 - 0.58 = Stage F2 - Bridging fibrosis with few septa</content>
<content>0.58 - 0.72 = Stage F3 - Bridging fibrosis with many septa</content>
<content>0.72 - 0.74 = Stage F3 - F4</content>
<content>>0.74 = Stage F4 - Cirrhosis</content>
<content></content> Toth Scoring Laboratory test result [facility] ([facility]) . 0.25 = N0 - Not TOTH 0.50 = N1 - Borderline or probable TOTH 0.75 = N2 - TOTH Laboratory test finding (navigational concept) Laboratory test result [facility] ([facility]) . TOTH FibroSure is recommended for patients with suspected non-alcoholic fatty liver disease. It is not recommended for patients with other liver diseases. It is also not recommended in patients with Gilbert Disease, acute hemolysis, acute viral hepatitis, drug induced hepatitis, genetic liver disease, autoimmune hepatitis and/or extra- hepatic cholestasis. Any of these clinical situations may lead to inaccurate quantitative predictions of fibrosis. Comment Laboratory test result ME KERI ([facility]) . This test was developed and its performance characteristics determined by [facility]. It has not been cleared or approved by the Food and Drug Administration. The FDA has determined that such clearance or approval is not necessary. . For questions regarding this report please contact customer service at . . References: . 1. Bradley Jessica et al. Diagnostic Value of Biochemical Markers (FibroTest) for the prediction of Liver Fibrosis in patients with Non-Alcoholic Fatty Liver Disease. BMC Gastroenterology 2006; 6:6. 2. Raquel Marei et al. The Diagnostic Kelly ue of Biomarkers (Steato Test) for the Prediction of Live r Steatosis. Comparative Hepatol. 2005; 4:10. 3. Romana Marie, Adrianne Huerta F, et a l. Diagnostic value of biochemical markers (TOTH TEST) for the prediction of non alcohol steato hepatitis in patients with non- alcoholic fatty liver disease. BMC Gastroenterology 2006; 6:34 doi:10.1186/1446-973U-6-34. Performed at: [address] [id number] Registration Clerk: Kristopher Shay MD, Phone: [phone] ID Date Data Source [id number] 01/24/2021 09:03:00 AM EDT [facility] ([facility]) Name Value Range Interpretation Code Description Data Jennifer rce(s) Supporting Document(s) aPTT in Platelet poor plasma by Coagulation assay 30.9 s 24.2-38. 5 [facility] ([facility]) ID Date Data Source [id number] 01/24/2021 09:03:00 AM EDT [facility] ([facility]) Name Value Range Interpretation Code Description Data Jennifer rce(s) Supporting Document(s) Inr 1.02 [facility] ([facility]) THERAPUTIC HUMAN INR VALUES INDICATIONS NORMAL RANGES PROPHYLAXIS/TREATMENT OF: VENOUS THROMBOSIS 2.0-3.0 PULMONARY EMBOLISM 2.0-3.0 PREVENTION OF SYSTEMIC EMBOLISM FROM: TISSUE HEART VALVES 2.0-3.0 ACUTE MYOCARDIAL INFARCTION 2.0-3.0 VALVULAR HEART DISEASE 2.0-3.0 ATRIAL FIBRILLATION 2.0-3.0 MECHANICAL VALVES(HIGH RISK) 2.5-3.5 RECURRENT MYOCARDIAL INFARCTION 2.5-3.5 Prothrombin Time 13.6 s 12.5-14.3 [facility] ( [facility]) ID Date Data Source [id number] 01/24/2021 09:03:00 AM EDT [facility] ([facility]) Name Value Range Interpretation Code Description Data Jennifer rce(s) Supporting Document(s) [id number] [Mass/volume] in Serum or Plasma 3.5 ng/mL [facility] ([facility]) THE AFP ASSAY IS PERFORMED ON THE [employer] A/S BY CHEMILUMINESCENCE AND SHOULD NOT BE COMPARED INTERCHANGEABLY WITH OTHER METHODS. IT SHOULD NOT BE USED ALONE A SCREENING TEST OR DIAGNOSIS FOR THE PRESENCE OR ABSENCE OF MALIGNANT DISEASE. THESE RESULTS ARE NOT INTERPRETABLE IN FEMALES. PREDICTIONS OF DISEASE RECURRENCE SHOULD NOT BE BASED SOLELY ON VALUES OBTAINED FROM SERIAL PATIENT SERUM VALUES. ID Date Data Source [id number] 01/24/2021 09:03:00 AM EDT [facility] ([facility]) Name Value Range Interpretation Code Description Data Jennifer rce(s) Supporting Document(s) Blood Urea Nitrogen 13 mg/dL 7-18 MEDEN T ([facility]) Glucose, Fasting 78 mg/dL 70-100 [facility] ( [facility]) Creatinine For GFR 0.68 mg/dL 0.55-1.30 [facility] ([facility]) Glomerular Filtration Rate Laboratory test result [facility] ([facility]) <content>Units are mL/min/1.73 m2</content>
<content></content>
<content>Chronic Kidney Disease Staging per NKF:</content>
<content></content>
<content>Stage I & II GFR >=60 Normal to Mildly Decreased</content>
<content>Stage III GFR 30- 59 Moderately Decreased</content>
<content>Stage IV GFR 15-29 Severely Decreased</content>
<content>Stage V GFR <15 Very Little GFR Left</content>
<content>ESRD GFR <15 on EMPLOYEE COUNSELOR</content>
<content></content> Sodium Level 142 meq/L 136-145 [facility] ([facility]) Potassium Serum 4.4 meq/L 3.5-5.1 [facility] ([facility]) Chloride Level 107 meq/L 98-107 [facility] ([facility]) Anion Gap 2 meq/L 8-16 [facility] ([facility]) Carbon Dioxide Level 33 meq/L 21-32 MEDE NT ([facility]) Calcium Level 9.4 mg/dL 8.5-10.1 [facility] ([facility]) Alt/SGPT 30 U/L 12-78 [facility] ([facility]) Ast/Sgot 25 U/L 7-37 [facility] ([facility]) Alkaline Phosphatase 113 U/L 45-117 MED[facility] NT ([facility]) Total Protein 7.7 GM/DL 6.4-8.2 [facility] ([facility]) Bilirubin,Total 0.4 mg/dL 0.2-1.0 [facility] ([facility]) Albumin/Globulin Ratio 1.2 1.2-2.2 ME DENT ([facility]) Albumin 4.2 GM/DL 3.2-5.2 [facility] ([facility]) ID Date Data Source [id number] 01/24/2021 09:03:00 AM EDT [facility] ([facility]) Name Value Range Interpretation Code Description Data Jennifer rce(s) Supporting Document(s) White Blood Count 6.6 10 4.0-10.0 [facility] ([facility]) Red Blood Count 4.82 10 4.00-5.40 [facility] ([facility]) Hematocrit 43.0 % 36.0-47.0 [facility] ([facility]) Hemoglobin 14.1 g/dL 12.0-15.5 [facility] ([facility]) Mean Corpuscular Hemoglobin 29.3 pg 27.0-33.0 [facility] ([facility]) Mean Corpuscular Volume 89.2 fl 80.0-96.0 M EDENT ([facility]) Platelet Count, Automated 245 10 150-450 [facility] ([facility]) Mean Corpuscular HGB Conc 32.8 g/dL 32.0-36.5 [facility] ([facility]) Red Cell Distribution Width 12.5 % 11.5-14.5 [facility] ([facility]) Nucleated Red Blood Cell % 0.0 % 0-0 [facility] ([facility]) ID Date Data Source [id number] 11/20/2020 12:00:00 AM EST [facility] Bo Gupta MD Patient Name: [id number] Date of : 1970B1 Date of Exam: 1[place]ONG [place] [id number]#: Fax: [phone] EXAM: US ABDOMEN, LIMITED SINGLE ORGAN,QUADRANTCLINICAL INFORMATION: NASHComparison 02/20/2020.Sonographic evaluation of the liver shows homogeneous echogenicitythroughout in a pattern suggesting mild fatty infiltration. No focalhepatic mass, biliary dilatation nor adjacent ascites. The gallbladder iswell distended at 9.9 x 2.8 x 3.9 cm. There is no sonographic Aguilar sign. Wall thickness was 2.1 mm with no pericholecystic fluid. There are mobileechogenic gallstones with shadowing, the largest about 8 mm. Nopericholecystic fluid. The common duct is 3.4 mm and normal. Visualizedpancreas was unremarkable. The right kidney measures 9.5 x 4.1 x 5 cm.There is no hydronephrosis. Doppler tracing shows resistive index 0.66,normal. Pattern of speckled echos in the pyramids is noted. These mayreflect small pyramidal calcifications.IMPRESSION:1. Some mild fatty infiltration of the liver may be suspected withoutgross hepatomegaly, intrahepatic biliary dilatation, mass or adjacentascites.2. Gallbladder with a few mobile stones up to 8 mm in size with noabnormal wall thickening or pericholecystic fluid.3. Common duct 3.4 mm and normal. No visible stone within it. Thevisualized pancreas also intact.4. Right kidney with some scattered hyperechoic foci in pyramids that mayreflect small calcifications.Accredited by the [employer] [place] in General Ultrasound.Meng Childs, JUSTIN/Jailene mendoza for referring LUIS SAUNDERS to our office. Electronically Signed - MENG CHILDS MD 11/20/20 17:04 Name Value Range Interpretation Code Description Data Jennifer rce(s) Supporting Document(s) Procedure Social History Code Duration Value Status Description Data Source(s ) Smoking 07/15/2021 12:00:00 AM EDT Patient is a former smoker completed Patient is a former smoker [facility] ([place] [facility]) Smoking 06/26/2021 12:00:00 AM EDT Patient is a former smoker completed Patient is a former smoker [facility] Tattoo/Piercing 01/13/2021 12:00:00 AM EDT Pierced ears completed Pi erced ears [facility] ([facility]) Tattoo/Piercing 01/13/2021 12:00:00 AM EDT Tattoo completed Tatt oo [facility] ([facility]) ETOH Use 01/13/2021 12:00:00 AM EDT Rarely consumes alcohol com pleted Rarely consumes alcohol [facility] Smoking 01/13/2021 12:00:00 AM EDT Patient is a former smoker completed Patient is a former smoker [facility] Vital Signs ID Date Data Source [id number] Name Value Range Interpretation Code Description Data Source(s) Systolic blood pressure 122 mm[Hg] 122 mm[Hg] M [facility]ENT ([facility]) Diastolic blood pressure 80 mm[Hg] 80 mm[Hg] [facility] ([place] [facility]) Body height 59.75 [in_i] 59.75 [in_i] [facility] ([facility] [facility]) 4'11.75" Body weight 162.00 [lb_av] 162.00 [lb_av] [facility] T ([facility]) Body mass index (BMI) [Ratio] 31.9 kg/m2 31.9 k g/m2 [facility] ([employer] [facility]) Body surface area Derived from formula 1.70 m2 1.70 m2 [facility] ([employer] [facility]) Body temperature 97.9 [degF] 97.9 [degF] [facility] ([facility] Body height 61 [in_i] 61 [in_i] [facility] 5'1" Body weight 166.00 [lb_av] 166.00 [lb_av] [facility] T ([facility]) Systolic blood pressure 144 mm[Hg] 144 mm[Hg] M EDENT ([facility]) Diastolic blood pressure 83 mm[Hg] 83 mm[Hg] [facility] ([facility]) Heart rate 61 /min 61 /min [facility] ([facility] Body mass index (BMI) [Ratio] 31.4 kg/m2 31.4 k g/m2 [facility] ([facility]) Body weight 150.00 [lb_av] 150.00 [lb_av] [facility] T ([facility]) Systolic blood pressure 119 mm[Hg] 119 mm[Hg] M ED[facility] ([facility]) Diastolic blood pressure 73 mm[Hg] 73 mm[Hg] [facility] ([facility]) Heart rate 65 /min 65 /min [facility] ([facility] Body height 61 [in_i] 61 [in_i] [facility] 5'1" Body mass index (BMI) [Ratio] 28.3 kg/m2 28.3 k g/m2 [facility] ([facility]) Body temperature 97.4 [degF] 97.4 [degF] [facility] ([facility]) Systolic blood pressure 119 mm[Hg] 119 mm[Hg] M [facility] ([facility]) Body mass index (BMI) [Ratio] 28.3 kg/m2 28.3 k g/m2 [facility] ([facility]) Diastolic blood pressure 73 mm[Hg] 73 mm[Hg] [facility] ([facility]) Heart rate 65 /min 65 /min [facility] ([facility]) Body temperature 97.4 [degF] 97.4 [degF] [facility] ([facility]) Body height 61 [in_i] 61 [in_i] [facility] ([facility]) 5'1" Body weight 150.00 [lb_av] 150.00 [lb_av] [facility] T ([facility]) Patient Treatment Plan of Care Planned Activity Planned Date Details Description Data Source (s) Multiple Vitamins-Iron (MULTIVITAMIN WITH IRON) TABS 020 12:00:00 AM [facility]
--- OUTSIDE RECORDS SUMMARY | 2021-08-21 02:19 | CCD | Continuity of Care Document ---
Author Author Mirian SULLIVAN Organization Unknown Address [address] [place] [id number] Phone [phone] Problems Active Problems Provider Date Left lower [...] BSA (Body Surface Area) 1.69 m2 Results Description No Information Available Procedures Date Code Description Status 07/15/2021 85258 Preventive Visit Est 40-64 Yrs C ompleted 03/24/2020 [id number] Mammogram Completed 01/24/2018 [id number] Mammogram Completed 12/02/2008 [id number] Mammogram Completed Medical Devices Description No Information Available Encounters Type Date Location Provider Dx Diagnosis Office Visit 07/15/2021 11:30a [place] [employer] poultry sex[employer] Oma Sullivan MD Z0 1.419 Encntr for machine edge bander exam (general) (routine) w/o abn findings Z12.4 [...] 2:00 pm - Oma Sullivan MD at [facility] poultry sexer 07/15/2021 - Oma Sullivan MD* Z01.419 Encounter for gynecological examination (general) (routine) without abnormal findings * Z12.4 Encounter for screening for malignant neoplasm of cervix* New Labs:* Thinprep W/Reflex HR HPV If Asc-US, Ordered: 07/15/21 * Z12.39 Encounter for other screening for malignant neoplasm of breast Functional Status Description No Information Available Mental Status Description No Information Available Referrals Description No Information Available
--- OUTSIDE RECORDS SUMMARY | 2021-08-21 02:19 | CCD | Continuity of Care Document ---
Author Author Mirian SULLIVAN Organization Unknown Address [address] [place] [phone] Phone [phone] Problems Active Problems Provider Date Left lower [...] Available Procedures Date Code Description Status 07/15/2021 70788 Preventive Visit Est 40-64 Yrs C ompleted 03/24/2020 [id number] Mammogram Completed 01/24/2018 [id number] Mammogram Completed 12/02/2008 [id number] Mammogram Completed Medical Devices Description No Information Available Encounters Type Date Location Provider Dx Diagnosis Office Visit 07/15/2021 11:30a [place] [employer] job boss Oma Sullivan MD Z0 1.419 Encntr for applications intern exam (general) (routine) w/o abn findings Z12.4 [...] Treatment Future Appointment(s):* 07/16/2022 2:00 pm - mOa Sullivan MD at [facility] job boss 07/15/2021 - Oma Sullivan MD* Z01.419 Encounter [...]
--- OUTSIDE RECORDS SUMMARY | 2021-08-21 02:19 | CCD | Continuity of Care Document ---
Author Mirian Ruiz M.D. Organization Unknown Address [address], [address] [place] [address] Phone [phone] Care Team Providers Care Cotton Presser Name Role Phone Bam [place] MD AUTM [phone] Olivia Veliz MD AUTM [phone] Problems Active Problems Provider Date Essential hypertension Onset: 02/06/2020 Social History Type Date Description Comments Sex Unknown ETOH Use Rarely consumes alcohol Tobacco Use Start: Unknown End: Unknown Patient is a former smoker Smoking Status Reviewed: 06/26/21 Patient is a former smoker Tattoo/Piercing Tattoo Tattoo/Piercing Pierced ears Allergies and adverse reactions Description No Known Drug Allergies Medications Active Medications SIG Qnty Indications Ordering Provide r Date Levothyroxine Sodium 100mcg Tablet s 1 by mouth every day Unknown Simvastatin 20mg Tablets 1 by mouth every day Unknown Vitamin B-12 1000mcg Tablets 1 by mouth every day Unknown Vitamin D3 1000Unit Tablets 1 by mouth every day Unknown Calcium Citrate+D3 Petites [id number] Tablets 1 by mouth every day Unknown 0 000 Sertraline HCL 50mg Tablets 1 by mouth every day Unknown Immunizations Description No Information Available Vital Signs Date Vital Result Comment 06/26/2021 8:54am Body Temperature 97.9 F Height 61 inches 5'1" Weight 166.00 lb BP Systolic 144 mmHg BP Diastolic 83 mmHg Heart Rate 61 /min BMI (Body Mass Index) 31.4 kg/m2 01/13/2021 8:41am Body Temperature 97.4 F Height 61 inches 5'1" Weight 150.00 lb BP Systolic 119 mmHg BP Diastolic 73 mmHg Heart Rate 65 /min BMI (Body Mass Index) 28.3 kg/m2 Results Test Acquired Date Facility Test Result H/L Range Note CBC No Diff 06/26/2021 [place] [address] [phone] WBC 7.5 10*3/uL (4.1-11.0) RBC 4.60 10*6/uL (4.00-5.40) HGB 13.6 g/dL (12.0-16.0) HCT 40.1 % (36.0-47.0) MCV 87.1 fL (80.0-95.0) MCH 29.6 pg (27.0-32.0) MCHC 34.1 g/dL (32.0-36.0) RDW 13.0 % (10.5-14.5) PLT 249 10*3/uL (150-450) MPV 8.1 fL (7.1-10.7) CMP 06/26/2021 [place] [address] [phone] Sodium 140 mmol/L (136-145) Potassium 4.1 mmol/L (3.6-5.2) Chloride 107 mmol/L (100-108) Co2 29 mmol/L (22-31) Anion Gap 4 mmol/L Low (7-16) Urea Nitrogen 16 mg/dL (7-24) Creatinine 0.68 mg/dL (0.60-1.00) BUN/Creat Ratio 23.5 RATIO High (10.0-20.0) Glucose 76 mg/dL (70-99) Calcium 9.3 mg/dL (8.4-10.2) Total Protein 7.3 g/dL (6.4-8.2) Albumin 4.0 g/dL (3.5-4.6) Globulin 3.3 g/dL (2.7-4.3) Alb/Glob Ratio 1.2 RATIO Alkaline Phosphatase 140 U/L High (45-117) Bilirubin,Total 0.3 mg/dL (0.0-1.0) 1 Ast (Sgot) 25 U/L (11-39) Alt (SGPT) 29 U/L (12-78) GFR >60 ml/min/1.73m2 (>59) GFR ( Amer) >60 ml/min/1.73m2 (>59) GFR Interpretation <SEE NOTE> 2 Laboratory test finding 06/26/2021 [place] [address] [phone] Afp-Tumor Marker @ 3.7 ng/mL (<6.0) 3 Protime 06/26/2021 [place] [address] [phone] PT 10.7 s (9.2-11.9) Inr 1.00 4 Activated Partial Thromboplasin Time 06/26/2021 [place] [address] [phone] Aptt 28.1 s (22.0-34.3) CBC No Diff 01/24/2021 [place] [address] [phone] White Blood Count 6.6 10 Normal 4.0-10.0 Red Blood Count 4.82 10 Normal 4.00-5.40 Hemoglobin 14.1 g/dL Normal 12.0-15.5 Hematocrit 43.0 % Normal 36.0-47.0 Mean Corpuscular Volume 89.2 fl Normal 80.0-96.0 Mean Corpuscular Hemoglobin 29.3 pg Normal 27.0-33.0 Mean Corpuscular HGB Conc 32.8 g/dL Normal 32.0-36.5 Red Cell Distribution Width 12.5 % Normal 11.5-14.5 Platelet Count, Automated 245 10 Normal 150-450 Nucleated Red Blood Cell % 0.0 % Normal 0-0 CMP 01/24/2021 [place] [address] [phone] Glucose, Fasting 78 mg/dL Normal 70-100 Blood Urea Nitrogen 13 mg/dL Normal 7-18 Creatinine For GFR 0.68 mg/dL Normal 0.55-1.30 Glomerular Filtration Rate > 60.0 Normal >51 5 Sodium Level 142 mEq/L Normal 136-145 Potassium Serum 4.4 mEq/L Normal 3.5-5.1 Chloride Level 107 mEq/L Normal 98-107 Carbon Dioxide Level 33 mEq/L High 21-32 Anion Gap 2 mEq/L Low 8-16 Calcium Level 9.4 mg/dL Normal 8.5-10.1 Ast/Sgot 25 U/L Normal 7-37 Alt/SGPT 30 U/L Normal 12-78 Alkaline Phosphatase 113 U/L Normal 45-117 Bilirubin,Total 0.4 mg/dL Normal 0.2-1.0 Total Protein 7.7 GM/DL Normal 6.4-8.2 Albumin 4.2 GM/DL Normal 3.2-5.2 Albumin/Globulin Ratio 1.2 Normal 1.2-2.2 Laboratory test finding 01/24/2021 [place] [address] [phone] Alpha Fetoprotein Tumor Quant 3.5 NG/ML Normal <8 .1 6 Prothrombin Time/Inr 01/24/2021 [place] [address] [phone] Prothrombin Time 13.6 seconds Normal 12.5-14.3 Inr 1.02 Normal 7 Laboratory test finding 01/24/2021 [place] [address] [phone] Partial Thromboplastin Time 30.9 seconds Normal 24 .2-38.5 Toth Fibrosure 01/24/2021 [facility] [place] [address] [phone] Fibrosis Score 0.23 High 0.00-0.21 Fibrosis Stage F0-F1 Normal . Steatosis Score 0.22 Normal 0.00-0.30 Steatosis Grade (SEE NOTE) Normal . 8 Toth Score 0.25 Normal 0.25 Toth Grade (SEE NOTE) Normal . 9 Height 61 in Normal . Weight 150 LBS Normal . Alpha 2-Macroglobulins,QN 281 mg/dL High 110-276 Haptoglobin 74 mg/dL Normal 33-346 Apolipoprotein A-1 152 mg/dL Normal 116-209 Bilirubin, Total 0.4 mg/dL Normal 0.0-1.2 GGT 10 IU/L Normal 0-60 Alt (SGPT) P5P 20 IU/L Normal 0-40 Ast (Sgot) P5P 26 IU/L Normal 0-40 Cholesterol Total 161 mg/dL Normal 100-199 Glucose, Serum 82 mg/dL Normal 65-99 Triglycerides 111 mg/dL Normal 0-149 Interpretations (SEE NOTE) Normal . 10 Fibrosis Scoring (SEE NOTE) Normal . 11 Steatosis Grading (SEE NOTE) Normal . 12 Toth Scoring (SEE NOTE) Normal . 13 Limitations (SEE NOTE) Normal . 14 Comment (SEE NOTE) Normal . 15 1 PLEASE NOTE: Total bilirubin results may be falsely elevated in patients taking Eltrombopag. 2 -- NORMAL KIDNEY FUNCTION OR MILD DISEASE - GFR >OR= 60 CHRONIC KIDNEY DISEASE - GFR 15 - 59 RENAL FAILURE - GFR <15 -- Est. GFR calculation based on the MDRD study equation, which assumes a steady state for creatinine. Est. GFR should not be used for medication dosing. 3 ASSAY BY IMMUNOCHEMILUMINOME TRIC ASSAY ON THE SIEMENS [email or web address] 2000 XPi. VALUES OBTAINED WITH DIFFERENT METHODS OR KITS CANNOT BE USED INTERCHANGEABLY FOR PATIENT MONITORING. RESULTS CANNOT BE INTERPRETED ABSOLUTE EVIDENCE OF THE PRESENCE OR ABSENCE OF MALIGNANCY. THE TEST IS NOT INTERPRETABLE IN . AFP CAN BE INCREASED IN A VARIETY OF BENIGN DISEASES. SPECIFICITY FOR THE DETECTION OF MALIGNANCY INCREASES WITH INCREASING LEVELS. 4 SUGGESTED THERAPEUTIC RANGES USING INR FOR STABILIZED ANTICOAGULATED PATIENTS: STANDARD DOSE THERAPY INR 2.0-3.0 DVT, PE, PREVENT DVT OR EMBOLISM HIGH DOSE THERAPY INR 2.5-3.5 PREVENT EMBOLISM FROM MECHANICAL HEART VALVE 5 Units are mL/min/1.73 m2 Chronic Kidney Disease Staging per NKF: Stage I & II GFR >=60 Normal to Mildly Decreased Stage III GFR 30-59 Moderately Decreased Stage IV GFR 15-29 Severely Decreased Stage V GFR <15 Very Little GFR Left ESRD GFR <15 on TRANSFER SPECIALIST 6 THE AFP ASSAY IS PERFORMED O N THE [employer] BY CHEMILUMINESCENCE AND SHOULD NOT BE COMPARED INTERCHANGEABLY WITH OTHER METHODS. IT SHOULD NOT BE USED ALONE A SCREENING TEST OR DIAGNOSIS FOR THE PRESENCE OR ABSENCE OF MALIGNANT DISEASE. THESE RESULTS ARE NOT INTERPRETABLE IN FEMALES. PREDICTIONS OF DISEASE RECURRENCE SHOULD NOT BE BASED SOLELY ON VALUES OBTAINED FROM SERIAL PATIENT SERUM VALUES. 7 THERAPUTIC HUMAN INR VALUES INDICATIONS NORMAL RANGES PROPHYLAXIS/TREATMENT OF: VENOUS THROMBOSIS 2.0-3.0 PULMONARY EMBOLISM 2.0-3.0 PREVENTION OF SYSTEMIC EMBOLISM FROM: TISSUE HEART VALVES 2.0-3.0 ACUTE MYOCARDIAL INFARCTION 2.0-3.0 VALVULAR HEART DISEASE 2.0-3.0 ATRIAL FIBRILLATION 2.0-3.0 MECHANICAL VALVES(HIGH RISK) 2.5-3.5 RECURRENT MYOCARDIAL INFARCTION 2.5-3.5 8 S0 - No Steatosis 9 N0 - Not TOTH 10 . Quantitative results of 10 biochemicals in combination with age, gender, height, and weight, are analyzed using a computational algorithm to provide a quantitative surrogate marker (0.0-1.0) of liver fibrosis (Metavir F0-F4), hepatic steatosis (0.0-1.0, S0-S3), and Non-Alcoholic Steato- Hepatitis (TOTH) (0.0-0.75, N0-N2). The absence of steatosis (S<0.38) precludes the diagnosis of TOTH . . Fibrosis marker: In a study of 171 Non-Alcoholic Fatty Liver Disease (NAFLD) patients where 23% had significant NAFLD fibrosis (Metavir F2-F4) and 11% had cirrhosis by liver biopsy, a fibrosis result of >0.3 yielded a sensitivity of 83% and a specificity of 78% for the detection of significant fibrosis(1). . Steatosis Marker: In a population of 744 patients (583 HCV, 18 HBV, 69 NAFLD, and 74 alcoholic disea se patients), where 36% had significant steatosis (>5%) on a liver biopsy, a steatosis score >0.5 had a sensitivity of 71% and a specificity of 72% for identification of significant steatosis(2). . TOTH marker: In a population of 257 NAFLD patients, where 62% had at least some TOTH by liver biop sy, a prediction of TOTH had a sensitivity of 88% for identifying TOTH and a specificity of 50%(3). . 11 . <0.21 = Stage F0 - No fibrosis 0.21 - 0.27 = Stage F0 - F1 0.27 - 0.31 = Stage F1 - Portal fibrosis 0.31 - 0.48 = Stage F1 - F2 0.48 - 0.58 = Stage F2 - Bridging fibros is with few septa 0.58 - 0.72 = Stage F3 - Bridging fibros is with many septa 0.72 - 0.74 = Stage F3 - F4 >0.74 = Stage F4 - Cirrhosis 12 . < 0.30 = S0 - No Steatosis 0.30 to 0.38 = S0 - S1 0.38 to 0.48 = S1 - Minimal Steatosis 0.48 to 0.57 = S1 - S2 0.57 to 0.67 = S2 - Moderate Steatosis 0.67 to 0.69 = S2 - S3 > 0.69 = S3 - Marked or Severe Steatosis 13 . 0.25 = N0 - Not TOTH 0.50 = N1 - Borderline or probable TOTH 0.75 = N2 - TOTH 14 . TOTH FibroSure is recommended for patients with suspected non-alcoholic fatty liver disease. It is not recommended for patients with other liver diseases. It is also not recommended in patients with Gilbert Disease, acute hemolysis, acute viral hepatitis, drug induced hepatitis, genetic liver disease, autoimmune hepatitis and/or extra- hepatic cholestasis. Any of these clinical situations may lead to inaccurate quantitative predictions of fibrosis. 15 . This test was developed and its performance characteristics determined by [employer]. It has not been cleared or approved by the Food and Drug Administration. The FDA has determined that such clearance or approval is not necessary. . For questions regarding this report please contact customer service at . . References: . 1. Bradley Thayer. et al. Diagnostic Value of Biochemical Markers (FibroTest) for the prediction of Liver Fibrosis in patients with Non-Alcoholic Fatty Liver Disease. BMC Gastroenterology 2006; 6:6. 2. Romana Marie. et al. The Diagnostic Kelly ue of Biomarkers (Steato Test) for the Prediction of Live r Steatosis. Comparative Hepatol. 2005; 4:10. 3. Romana Marie, Adrianne Huerta, et a l. Diagnostic value of biochemical markers (TOTH TEST) for the prediction of non alcohol steato hepatitis in patients with non- alcoholic fatty liver disease. BMC Gastroenterology 2006; 6:34 doi:10.1186/2789-974V-1-34. Performed at: [address] [id number] 61 Heater Worker: Kristopher Shay MD, Phone: [phone] Procedures Date Code Description Status 06/26/2021 36705 Office/Outpatient Established Mo d MDM 30-39 Min Completed 01/28/2021 709 Mo-Insurance Refund Completed Medical Devices Description No Information Available Encounters Type Date Location Provider Dx Diagnosis Office Visit 06/26/2021 8:15a [facility] Bo quiroz M.D. K75.81 Nonalcoholic steatohepatitis (Toth) R10.11 Right upper quadrant pain Assessments Date Code Description Provider 06/26/2021 K75.81 Nonalcoholic steatohepatitis (Na sh) Bo Gupta M.D. 06/26/2021 R10.11 Right upper quadrant pain Bo Gupta M.D. Plan of Treatment Future Appointment(s):* 12/29/2021 8:15 am - Bo Gupta M.D. 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 Other metabolic work-up was negative. Interestingly her TOTH FibroSure only showed F 0-1 making this test inaccurate in her case has liver biopsy is the gold standard. She has gained weight recently in the context of snacking and and sedentary lifestyle at work. * Recommendations:* Monitor LFTs. Continue weight loss. We discussed dietary modifications to clear her snacking and switching to more nutritious/low calorie snacks. Hepatocellular carcinoma screening: We will check ultrasound and AFP every 6 months. She is due now * R10.11 Right upper quadrant pain* Comments:* Patient has not had recurrent right upper quadrant pain. She will monitor for now. Functional Status Description No Information Available Mental Status Description No Information Available Referrals Description No Information Available
--- OUTSIDE RECORDS SUMMARY | 2021-08-21 02:19 | CCD | Continuity of Care Document ---
Author Author Mirian SULLIVAN Organization Unknown Address [address] [place] [address] Phone [phone] Problems Active Problems Provider Date Left lower [...] Available Procedures Date Code Description Status 07/15/2021 04947 Preventive Visit Est 40-64 Yrs C ompleted 03/24/2020 [id number] Mammogram Completed 01/24/2018 [id number] Mammogram Completed 12/02/2008 [id number] Mammogram Completed Medical Devices Description No Information Available Encounters Type Date Location Provider Dx Diagnosis Office Visit 07/15/2021 11:30a [facility] was[facility] Oma Sullivan MD Z0 1.419 Encntr for legal stenographer exam (general) (routine) w/o abn findings Z12.4 [...] 2:00 pm - Oma Sullivan MD at [facility] ore washer 07/15/2021 - Oma Sullivan MD* Z01.419 Encounter [...]
--- OUTSIDE RECORDS SUMMARY | 2021-08-21 02:19 | CCD | Continuity of Care Document ---
Author Mirian Ruiz M.D. Organization Unknown Address [address], [address] [place] [address] Phone [phone] Care Team Providers Care Scouring Machine Operator Name Role Phone Bam [place] MD AUTM [phone] Olivia Veliz MD AUTM [phone] Problems Active Problems Provider Date Essential hypertension [...] mouth every day Unknown Calcium Citrate+D3 Petites [id number] Tablets 1 by mouth every day Unknown [...] H/L Range Note CBC No Diff 06/26/2021 [place] [address] [phone] WBC 7.5 10*3/uL (4.1-11.0) RBC 4.60 10*6/uL (4.00-5.40) HGB 13.6 g/dL (12.0-16.0) HCT 40.1 % (36.0-47.0) MCV 87.1 fL (80.0-95.0) MCH 29.6 pg (27.0-32.0) MCHC 34.1 g/dL (32.0-36.0) RDW 13.0 % (10.5-14.5) PLT 249 10*3/uL (150-450) MPV 8.1 fL (7.1-10.7) CMP 06/26/2021 [place] [address] [phone] Sodium 140 mmol/L (136-145) Potassium 4.1 mmol/L [...] <SEE NOTE> 2 Laboratory test finding 06/26/2021 [place] [address] [phone] Afp-Tumor Marker @ 3.7 ng/mL (<6.0) 3 Protime 06/26/2021 [place] [address] [phone] PT 10.7 s (9.2-11.9) Inr 1.00 4 Activated Partial Thromboplasin Time 06/26/2021 [place] [address] [phone] Aptt 28.1 s (22.0-34.3) CBC No Diff 01/24/2021 [place] [address] [phone] White Blood Count 6.6 10 Normal 4.0-10.0 [...] % 0.0 % Normal 0-0 CMP 01/24/2021 [place] [address] [phone] Glucose, Fasting 78 mg/dL Normal 70-100 Blood [...] 1.2 Normal 1.2-2.2 Laboratory test finding 01/24/2021 [place] [address] [phone] Alpha Fetoprotein Tumor Quant 3.5 NG/ML Normal <8 .1 6 Prothrombin Time/Inr 01/24/2021 [place] [address] [phone] Prothrombin Time 13.6 seconds Normal 12.5-14.3 Inr 1.02 Normal 7 Laboratory test finding 01/24/2021 [place] [address] [phone] Partial Thromboplastin Time 30.9 seconds Normal 24 .2-38.5 Toth Fibrosure 01/24/2021 [facility] [place] [address] [phone] Fibrosis Score 0.23 High 0.00-0.21 Fibrosis Stage [...] BY IMMUNOCHEMILUMINOME TRIC ASSAY ON THE SIEMENS [employer]key Puzzle MediaULITE 2000 XPi. VALUES OBTAINED WITH DIFFERENT METHODS [...] Little GFR Left ESRD GFR <15 on PRIZE FIGHTER 6 THE AFP ASSAY IS PERFORMED O N THE DDStocks BY CHEMILUMINESCENCE AND SHOULD NOT BE COMPARED [...] developed and its performance characteristics determined by [employer]. It has not been cleared or approved [...] fatty liver disease. BMC Gastroenterology 2006; 6:34 doi:10.1186/5383-075M-3-34. Performed at: [address] [id number] 61 Studio Director: Kristopher Shay MD, Phone: [phone] Procedures Date Code Description Status 06/26/2021 35316 Office/Outpatient Established Mo d MDM 30-39 Min Completed 01/28/2021 709 Mo-Insurance Refund Completed 01/13/2021 29999 Office/Outpatient Established Lo w MDM 20-29 Min Completed Medical Devices Description No Information Available Encounters Type Date Location Provider Dx Diagnosis Office Visit 06/26/2021 8:15a [facility] Bo quiroz M.D. K75.81 Nonalcoholic steatohepatitis (Toth) R10.11 Right upper quadrant pain Office Visit 01/13/2021 8:45a [facility] Bo quiroz M.D. K75.81 Nonalcoholic steatohepatitis (Toth) R10.11 Right upper quadrant pain Assessments Date Code Description Provider 06/26/2021 K75.81 Nonalcoholic steatohepatitis (Na sh) Bo Gupta M.D. 06/26/2021 R10.11 Right upper quadrant pain Bo Gupta M.D. 01/13/2021 K75.81 Nonalcoholic steatohepatitis (Na sh) Bo Gupta M.D. 01/13/2021 R10.11 Right upper quadrant pain Bo Gupta M.D. Plan of Treatment Future Appointment(s):* 12/29/2021 8:15 am - Bo Gupta M.D. at [facility] 06/26/2021 - Bo Gupta M.D.* K75.81 Nonalcoholic [...]
--- OUTSIDE RECORDS SUMMARY | 2021-08-21 02:19 | CCD | Continuity of Care Document ---
Author Author Mirian SULLIVAN Organization Unknown Address [address] [place] [address] Phone [phone] Problems Active Problems Provider Date Left lower [...] Available Procedures Date Code Description Status 07/15/2021 47622 Preventive Visit Est 40-64 Yrs C ompleted 03/24/2020 [id number] Mammogram Completed 01/24/2018 [id number] Mammogram Completed 12/02/2008 [id number] Mammogram Completed Medical Devices Description No Information Available Encounters Type Date Location Provider Dx Diagnosis Office Visit 07/15/2021 11:30a [place] Woman gardener Oma Sullivan MD Z0 1.419 Encntr for feed mixer exam (general) (routine) w/o abn findings Z12.4 [...] 2:00 pm - Oma Sullivan MD at [facility] gardener 07/15/2021 - Oma Sullivan MD* Z01.419 Encounter [...]
--- OUTSIDE RECORDS SUMMARY | 2021-08-21 03:35 | CCD ---
Author Author [facility] Organization [facility] Address Unknown Phone Unavailable Care Team Providers Care Legal Job Titles Name Role Phone Kari SULLIVAN MD Unavailable [...] Unavailable Unavailable Kari SULLIVAN MD Unavailable Unavailable Krai SULLIVAN MD Unavailable Unavailable Kari SULLIVAN MD [...] Unavailable Rosie Gupta MD Unavailable Unavailable Rosie Gutpa MD Unavailable Unavailable Rosie Gupta MD Unavailable Unavailable Rosie Gupta MD Unavailable Unavailable Rosie Gupta MD Unavailable Unavailable Rosie Gupta MD Unavailable Unavailable Rosie Gupta MD Unavailable Unavailable Rosie Gupta MD Unavailable Unavailable Rosie Gupta MD Unavailable Unavailable Rosie Gupta MD Unavailable Unavailable Rosie Gupta MD Unavailable Unavailable Rosie Gupta MD Unavailable Unavailable Rosie Gupta MD Unavailable Unavailable Rosie Gupta MD Unavailable Unavailable Rosei Gupta MD Unavailable Unavailable Rosie Gupta MD [...] Unavailable Alonso, C Bo MD Unavailable Unavailable Alonos, C Bo MD Unavailable Unavailable Alonso, C [...] is protected by Article 27-F of the [facility] Public Health law. If you continue you may have access to information: Regarding HIV / AIDS; Provided by facilities licensed or operated by the [facility] Office of Mental Health; or Provided by the [facility] Office for People With Developmental Disabilities. If such information is present, then the following [facility] mandated warning applies: This information has [...] law may result in a fine or correction sentence or both. A general authorization for the release of medical or other information is NOT sufficient authorization for further disc losure. Family History Family Member Name Family Member Gender Family Member Status Date o f Status Description Data Source(s) Unknown Unknown Problem [facility] ([place] [facility]) Unknown Male Problem [facility] ([facility]) () Unknown Male Problem [facility] ([facility]) Unknown Male Problem [facility] ([facility]) Unknown Male Problem [facility] ([facility]) Unknown Female Problem [facility] ([facility]) Encounters Encounter Providers Location Date Indications Data Source(s ) Outpatient Attender: MARGE SULLIVAN MD [place] [facility]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 11:30:00 AM EDT [facility] ([place] [facility] [employer] [facility]) Outpatient Attender: Bo Gupta MD [place] [address] 06/26/2021 08:15:00 AM EDT [facility] ([facility]) Outpatient Attender: Bo Gupta MD [place] [address] 01/13/2021 08:45:00 AM EDT [facility] ([facility]) Immunizations Vaccine Date Status Description Data Source(s) COVID-19 VACCINE [employer] 01/02/2021 12:00:00 AM EDT completed NYSIIS Vaccine Series Complete: YESThis Data wa s Submitted to [facility] Via [employer]als[employer]. COVID-19 VACCINE [employer] 12/12/2020 12:00:00 AM EST completed NYSIIS Vaccine Series Complete: NOThis Data was Submitted to [facility] Via [employer]. Medications Medication Brand Name Start Date Product [...] active Take 2 tablets by mouth daily [facility] Insurance Providers Payer name Policy type / Coverage type Policy ID Covered republican ID Covered republican's relationship to cruz Policy Cruz Plan Information EMPIRE PLAN [id number] Spouse [id number] [employer] [facility] Health Maintenance Organization (HMO) [id number] BC EMPIRE SVETLANA DIV [id number] 2 [id number] [facility] [id number] [facility] [id number] Liberty Plan F [id number] SPOUSE [id number] EXCELLUS BCBS [id number] Spo YLS [id number] EXCELLUS BCBS [id number] [id number] [employer] [id number] HU2 [id number] 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 [id number] 01 [id number] 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 [id number] 18 [id number] [facility] Liberty Plan Health Maintenance Organization (HMO) [id number] Family Dependent [id number] BCBS EMPIRE SVETLANA DIV [id number] HU2 [id number] [facility] [employer] Commercial [id number] Family Dependent [id number] [employer] Health Maintenance Organization (HMO) [id number] Family Dependent [id number] [employer] [id number] Family Dependent [id number] [employer] Commercial [id number] Family Dependent [id number] [employer] Commercial [id number] Family Dependent [id number] UNITED HE[employer]-O/P [id number] 18 [id number] [employer] Commercial [id number] Family Depende nt [id number] EMPIRE BLUE CROSS BLUE SHIELD - OP [id number] EMPIRE (STATE EMP) P [id number] P [id number] [employer] P [id number] S [id number] [employer] [id number] HU2 [id number] EMPIRE (STATE EMP) O [id number] S [id number] [facility] O [id number] Problems, Conditions, and Diagnoses No Information Surgeries/Procedures Procedure Description Date Indications Data Source(s) PERIODIC PREVENTIVE MED EST PATIENT 40-64YRS 12:00:00 AM EDT [facility] ([facility] [facility]) OFFICE OUTPATIENT VISIT 25 MINUTES 06/26/2021 12:00:00 AM EDT [facility] ([facility]) Mo-Insurance Refund 01/28/2021 12:00:00 AM EDT [facility] ([facility]) OFFICE OUTPATIENT VISIT 15 MINUTES 01/13/2021 12:00:00 AM EDT [facility] ([facility]) Results ID Date Data Source [id number] 07/15/2021 12:00:00 PM EDT [facility] ([facility] [place] [employer] [facility]) Name Value Range Interpretation Code Description Data Jennifer rce(s) Supporting Document(s) TP Reflex HPV ASCUS Laboratory test result [facility] ([facility] [place] [employer]ACH[employer]) TP Reflex HPV ASCUS Laboratory test result [facility] ([place] [employer] MACHINE [employer]) SPECIMEN PART------ A. Cervical, Endocervical, ThinPrep Pap (Aquatic Instructor) CYTOLOGY HX-------- Date of Last Menstrual Period: ablation Other Information:Previous Normal Pap: 03/10/20 Ablation FINAL DIAGNOSIS---- INTERPRETATION: Negative for Intraepithelial Lesion or Malignancy. SPECIMEN ADEQUACY:Satisfactory for evaluation. The preparation is of borderline squamous cellularity, with abundant background inflammation. Inflammation can interfere with specimen processing, resulting in low squamous cellularity. ID Date Data Source [id number] 06/26/2021 09:57:00 AM EDT [facility] ([facility]) Name Value Range Interpretation Code Description Data Jennifer rce(s) Supporting Document(s) aPTT in Platelet poor plasma by Coagulation assay 28.1 s 22.0-34. 3 [facility] ([facility]) ID Date Data Source [id number] 06/26/2021 09:57:00 AM EDT [facility] ([facility]) Name Value Range Interpretation Code Description Data Jennifer rce(s) Supporting Document(s) INR in Platelet poor plasma by Coagulation assay 1.00 [facility] ([facility]) SUGGESTED THERAPEUTIC RANGES USING INR F OR STABILIZED ANTICOAGULATED PATIENTS: STANDARD DOSE THERAPY INR 2.0-3.0 DVT, PE, PREVENT DVT OR EMBOLISM HIGH DOSE THERAPY INR 2.5-3.5 PREVENT EMBOLISM FROM MECHANICAL HEART VALVE Prothrombin time (PT) 10.7 s 9.2-11.9 MED ENT ([facility]) ID Date Data Source [id number] 06/26/2021 09:57:00 AM EDT [facility] ([facility]) Name Value Range Interpretation Code Description Data Jennifer rce(s) Supporting Document(s) [id number] [Mass/volume] in Serum or Plasma 3.7 ng/mL [facility] ([facility]) ASSAY BY IMMUNOCHEMILUMINOMETRIC ASSAY ON THE SIEMENS [...] WITH INCREASING LEVELS. ID Date Data Source [id number] 06/26/2021 09:57:00 AM EDT [facility] ([facility]) Name Value Range Interpretation Code Description Data Jennifer rce(s) Supporting Document(s) Sodium [Moles/volume] in Serum or Plasma 140 mmol/L 136-145 [facility] ([facility]) Potassium [Moles/volume] in Serum or Plasma 4.1 mmol/L 3.6-5.2 [facility] ([facility]) Chloride [Moles/volume] in Serum or Plasma 107 mmol/L 100-108 [facility] ([facility]) Carbon dioxide, total [Moles/volume] in Serum or Plasma 29 mmol/L 22 -31 [facility] ([facility]) Anion gap 3 in Serum or Plasma 4 mmol/L 7-16 [facility] ([facility]) Creatinine [Mass/volume] in Serum or Plasma 0.68 mg/dL 0.60-1.00 [facility] ([facility]) Urea nitrogen/Creatinine [Mass Ratio] in Serum or Plasma 23.5 RATIO 10.0-20.0 [facility] ([facility]) Urea nitrogen [Mass/volume] in Serum or Plasma 16 mg/dL 7-24 [facility] ([facility]) Calcium [Mass/volume] in Serum or Plasma 9.3 mg/dL 8.4-10.2 [facility] ([facility]) Glucose [Mass/volume] in Serum or Plasma 76 mg/dL 70-99 [facility] ([facility]) Albumin [Mass/volume] in Serum or Plasma 4.0 g/dL 3.5-4.6 [facility] ([facility]) Protein [Mass/volume] in Serum or Plasma 7.3 g/dL 6.4-8.2 [facility] ([facility]) Globulin [Mass/volume] in Serum 3.3 g/dL 2.7-4.3 [facility] ([facility]) Bilirubin.total [Mass/volume] in Serum or Plasma 0.3 mg/dL 0.0-1.0 [facility] ([facility]) PLEASE NOTE: Total bilirubin results may be falsely elevated in patients taking Eltrombopag. Alkaline phosphatase [Enzymatic activity/volume] in Serum or Plasma 140 U/L 45-117 [facility] ([facility] Albumin/Globulin [Mass Ratio] in Serum or Plasma 1.2 RATIO [facility] ([facility]) Alanine aminotransferase [Enzymatic activity/volume] in Seru m or Plasma 29 U/L 12-78 [facility] ([facility]) Aspartate aminotransferase [Enzymatic activity/volume] in Serum or Plasma 25 U/L 11-39 [facility] ([facility]) GFR Interpretation Laboratory test result [facility] ([facility]) <content></content>
<content> </con tent>
<content>NORMAL KIDNEY FUNCTION</content>
[...] test result [facility] ([facility]) Glomerular filtration rate/1.73 sq M.pre dicted [Volume Rate/Area] in Serum or Plasma by Creatinine-based formula (MDRD) Laboratory test result [facility] ([facility]) ID Date Data Source [id number] 06/26/2021 09:57:00 AM EDT [facility] ([facility]) Name Value Range Interpretation Code Description Data Jennifer rce(s) Supporting Document(s) Erythrocytes [#/volume] in Blood by Automated count 4.60 10*6/uL 4.00 -5.40 [facility] ([facility]) Leukocytes [#/volume] in Blood by Automated count 7.5 10*3/uL 4.1-11. 0 [facility] ([facility]) Hematocrit [Volume Fraction] of Blood by Automated count 40.1 % 3 6.0-47.0 [facility] ([facility]) Hemoglobin [Mass/volume] in Blood 13.6 g/dL 12.0-16.0 [facility] ([facility]) Erythrocyte mean corpuscular hemoglobin [Entitic mass] by Automated count 29.6 pg 27.0-32.0 [facility] ([facility]) Erythrocyte mean corpuscular volume [Entitic volume] by Auto mated count 87.1 fL 80.0-95.0 [facility] ([facility]) Erythrocyte mean corpuscular hemoglobin concentration [Mass/volume] by Automated count 34.1 g/dL 32.0-36.0 [facility] ([facility]) Platelets [#/volume] in Blood by Automated count 249 10*3/uL 150-450 [facility] ([facility]) Erythrocyte distribution width [Ratio] by Automated count 13.0 % 10.5-14.5 [facility] ([facility]) Platelet mean volume [Entitic volume] in Blood by Automated count 8.1 fL 7.1-10.7 [facility] ([facility]) ID Date Data Source [id number] 06/26/2021 11:49:12 AM EDT Laboratory [place] [...] - CORE MCHC 34.1 g/dL (32.0-36.0) [facility] [place] [facility] RDW 13.0 % (10.5-14.5) [facility] [place] - CORE PLT 249 10*3/uL (150-450) [facility] [place] - [facility] MPV 8.1 fL (7.1-10.7) Laboratory [place] - [place] ID Date Data Source [id number] 06/26/2021 12:26:00 PM EDT [facility] [place] [facility] [place] - [facility] Name Value Range Interpretation Code Description Data Jennifer rce(s) Supporting Document(s) SODIUM 140 mmol/L (136-145) Laboratory [place] [facility] [place] - CORE POTASSIUM 4.1 mmol/L (3.6-5.2) Laboratory [place] [facility] [place] - CORE CHLORIDE 107 mmol/L (100-108) Laboratory [place] [facility] [place] - CORE CO2 29 mmol/L (22-31) Laboratory [place] [facility] [place] - CORE ANION GAP 4 mmol/L (7-16) L Laboratory [place] [facility] [place] - CORE UREA NITROGEN 16 mg/dL (7-24) Laboratory [facility] [place] - CORE CREATININE 0.68 mg/dL (0.60-1.00) Laboratory [facility] [place] - CORE BUN/CREAT RATIO 23.5 RATIO (10.0-20.0) H Laboratory [place] [facility] [place] - CORE GLUCOSE 76 mg/dL (70-99) Laboratory [place] [facility] [place] - CORE CALCIUM 9.3 mg/dL (8.4-10.2) Laboratory [place] [facility] [place] - CORE TOTAL PROTEIN 7.3 g/dL (6.4-8.2) Laboratory [facility] [place] - CORE ALBUMIN 4.0 g/dL (3.5-4.6) Laboratory [place] [facility] [place] - CORE GLOBULIN 3.3 g/dL (2.7-4.3) Laboratory [place] [facility] [place] - CORE ALB/GLOB RATIO 1.2 RATIO Laboratory [place] [facility] [place] - CORE ALKALINE PHOSPHATASE 140 U/L (45-117) H Laborator y [place] [facility] [place] - CORE BILIRUBIN,TOTAL 0.3 mg/dL (0.0-1.0) Laboratory [facility] [place] - CORE PLEASE NOTE:Total bilirubin results may be falselyelevated in patients taking Eltrombopag. AST (SGOT) 25 U/L (11-39) Laboratory [place] [employer] ALT (SGPT) 29 U/L (12-78) Laboratory [place] [employer] GFR >60 ml/min/1.73m2 (>59) Laboratory [facility] [employer] [facility] [place] GFR ( AMER) >60 ml/min/1.73m2 (>59) Laboratory [place] [employer] GFR INTERPRETATION Laboratory [place] [employer] [facility] [facility] --NORMAL KIDNEY FUNCTION OR MILD DISEASE - GFR >OR= 60CHRONIC KIDNEY DISEASE - GFR 15 - 59RENAL FAILURE - GFR <15 Est. GFR calculation based on the MDRDstudy equation, which assumes a steadystate for creatinine. Est. GFR should notbe used for medication dosing. ID Date Data Source [id number] 06/26/2021 12:28:30 PM EDT Laboratory [facility] Name Value Range Interpretation Code Description Data Jennifer rce(s) Supporting Document(s) APTT 28.1 s (22.0-34.3) Laboratory [facility] ID Date Data Source [id number] 06/26/2021 12:28:30 PM EDT Laboratory [facility] Name Value Range Interpretation Code Description Data Jennifer rce(s) Supporting Document(s) PT 10.7 s (9.2-11.9) Laboratory [place] [employer] [facility] INR 1.00 Laboratory [place] [employer] [facility] SUGGESTED THERAPEUTIC RANGES USING INR F ORSTABILIZED ANTICOAGULATED PATIENTS:STANDARD DOSE THERAPY INR 2.0-3.0 DVT, PE, PREVENT DVT OR EMBOLISMHIGH DOSE THERAPY INR 2.5-3.5 PREVENT EMBOLISM FROM MECHANICAL HEART VALVE ID Date Data Source [id number] 06/26/2021 04:15:59 PM EDT [facility] [place] [facility] [place] [facility] [place] Name Value Range Interpretation Code Description Data Jennifer rce(s) Supporting Document(s) AFP-TUMOR MARKER @ 3.7 ng/mL (<6.0) Laboratory [place] [facility] - CORE ASSAY BY IMMUNOCHEMILUMINOMETRIC ASSAYON THE SIEMENS IMMULITE 2000 XPi. VALUESOBTAINED WITH DIFFERENT METHODS OR KITSCANNOT BE USED INTERCHANGEABLY FOR PATIENTMONITORING. RESULTS CANNOT BE INTERPRETEDAS ABSOLUTE EVIDENCE OF THE PRESENCE ORABSENCE OF MALIGNANCY. THE TEST IS NOTINTERPRETABLE IN . AFP CAN BE INCREASED IN A VARIETY OFBENIGN DISEASES. SPECIFICITY FOR THE DETECTION OF MALIGNANCY INCREASES WITHINCREASING LEVELS. ID Date Data Source [id number] 01/24/2021 09:03:00 AM EDT [facility] ([facility]) Name Value Range Interpretation Code Description Data Jennifer rce(s) Supporting Document(s) Fibrosis Score 0.23 0.00-0.21 [facility] ([facility]) Fibrosis Stage Laboratory test result [facility] ([facility]) Steatosis Score 0.22 0.00-0.30 [facility] ([facility]) Steatosis Grade Laboratory test result [facility] ([facility]) S0 - No Steatosis Toth Score 0.25 [facility] ([facility]) Toth Grade Laboratory test result ME DENT ([facility]) N0 - Not TOTH Height 61 in [facility] ([facility]) Haptoglobin 74 mg/dL 33-346 [facility] ([facility]) Weight 150 LBS [facility] ([facility]) Laboratory test finding (navigational concept) 281 mg/dL 110-276 [facility] ([facility]) Bilirubin, Total 0.4 mg/dL 0.0-1.2 [facility] ( [facility]) GGT 10 IU/L 0-60 [facility] ([facility]) Apolipoprotein A-1 152 mg/dL 116-209 [facility] ([facility]) Ast (Sgot) P5P 26 IU/L 0-40 [facility] ([facility]) Alt (SGPT) P5P 20 IU/L 0-40 [facility] ([facility]) Glucose, Serum 82 mg/dL 65-99 [facility] ([facility]) Laboratory test finding (navigational concept) 161 mg/dL 100-199 [facility] ([facility]) Laboratory test finding (navigational concept) Laboratory test result [facility] ([facility]) <content>.</content>
<content>Quanti tative results of 10 biochemicals [...] mg/dL 0-149 [facility] ([facility]) Steatosis Grading Laboratory test result [facility] ([facility]) <content>.</content>
<content>< 0.30 = S0 - No [...] Laboratory test result [facility] ([facility]) <content>.</content>
<content><0.21 = Stage F0 - No [...] Laboratory test result [facility] ([facility]) . 0.25 = N0 - Not TOTH 0.50 = N1 - Borderline or probable TOTH 0.75 = N2 - TOTH Laboratory test finding (navigational concept) Laboratory test result [facility] ([facility]) . TOTH FibroSure is recommended for patients [...] test result ME KERI ([facility]) . This test was developed and its performance characteristics determined by [employer]. It has not been cleared or approved [...] Disease. [facility] 2006; 6:6. 2. Raquel Marie et al. The Diagnostic Kelly ue of Biomarkers (Steato Test) for the Prediction of Live r Steatosis. Comparative Hepatol. 2005; 4:10. 3. Romana Marie, Adrianne Huerta F, et a l. Diagnostic value of biochemical markers (TOTH TEST) for the prediction of non alcohol steato hepatitis in patients with non- alcoholic fatty liver disease. [facility]MC [facility] 2006; 6:34 doi:10.1186/4590-897P-2-34. Performed at: [address] [id number] [address] Cutter: Kristopher Shay MD, Phone: [phone] ID Date Data Source [id number] 01/24/2021 09:03:00 AM EDT [facility] ([facility]) Name Value Range Interpretation Code Description Data Jennifer rce(s) Supporting Document(s) aPTT in Platelet poor plasma by Coagulation assay 30.9 s 24.2-38. 5 [facility] ([facility]) ID Date Data Source [id number] 01/24/2021 09:03:00 AM EDT [facility] ([facility]) Name Value Range Interpretation Code Description Data Jennifer rce(s) Supporting Document(s) Inr 1.02 [facility] ([facility]) THERAPUTIC HUMAN INR VALUES INDICATIONS NORMAL RANGES PROPHYLAXIS/TREATMENT OF: VENOUS THROMBOSIS 2.0-3.0 PULMONARY EMBOLISM 2.0-3.0 PREVENTION OF SYSTEMIC EMBOLISM FROM: TISSUE HEART VALVES 2.0-3.0 ACUTE MYOCARDIAL INFARCTION 2.0-3.0 VALVULAR HEART DISEASE 2.0-3.0 ATRIAL FIBRILLATION 2.0-3.0 MECHANICAL VALVES(HIGH RISK) 2.5-3.5 RECURRENT MYOCARDIAL INFARCTION 2.5-3.5 Prothrombin Time 13.6 s 12.5-14.3 [facility] ( [facility]) ID Date Data Source [id number] 01/24/2021 09:03:00 AM EDT [facility] ([facility]) Name Value Range Interpretation Code Description Data Jennifer rce(s) Supporting Document(s) [id number] [Mass/volume] in Serum or Plasma 3.5 ng/mL [facility] ([facility]) THE AFP ASSAY IS PERFORMED ON THE [employer] BY CHEMILUMINESCENCE AND SHOULD NOT BE COMPARED INTERCHANGEABLY WITH OTHER METHODS. IT SHOULD NOT BE USED ALONE A SCREENING TEST OR DIAGNOSIS FOR THE PRESENCE OR ABSENCE OF MALIGNANT DISEASE. THESE RESULTS ARE NOT INTERPRETABLE IN FEMALES. PREDICTIONS OF DISEASE RECURRENCE SHOULD NOT BE BASED SOLELY ON VALUES OBTAINED FROM SERIAL PATIENT SERUM VALUES. ID Date Data Source [id number] 01/24/2021 09:03:00 AM EDT [facility] ([facility]) Name Value Range Interpretation Code Description Data Jennifer rce(s) Supporting Document(s) Blood Urea Nitrogen 13 mg/dL 7-18 MEDEN T ([facility]) Glucose, Fasting 78 mg/dL 70-100 [facility] ( [facility]) Creatinine For GFR 0.68 mg/dL 0.55-1.30 [facility] ([facility]ated [facility]) Glomerular Filtration Rate Laboratory test result [facility] ([facility]) <content>Units are mL/min/1.73 m2</content>
<content></content>
<content>Chronic Kidney Disease Staging per [facility]:</content>
<content></content>
<content>Stage I & II GFR >=60 Normal to Mildly Decreased</content>
<content>Stage III GFR 30- 59 Moderately Decreased</content>
<content>Stage IV GFR 15-29 Severely Decreased</content>
<content>Stage V GFR <15 Very Little GFR Left</content>
<content>ESRD GFR <15 on FLOWER GROWER</content>
<content></content> Sodium Level 142 meq/L 136-145 [facility] ([facility]) Potassium Serum 4.4 meq/L 3.5-5.1 [facility] ([facility]) Chloride Level 107 meq/L 98-107 [facility] ([facility]) Anion Gap 2 meq/L 8-16 [facility] ([facility]) Carbon Dioxide Level 33 meq/L 21-32 MEDE NT ([facility]) Calcium Level 9.4 mg/dL 8.5-10.1 [facility] ([facility]) Alt/SGPT 30 U/L 12-78 [facility] ([facility]) ID Date Data Source [id number] 01/24/2021 09:03:00 AM EDT [facility] ([facility] [...] [facility]) ID Date Data Source [id number] 11/20/2020 12:00:00 AM EST [facility] Bo Gupta MD Patient Name: CLAIR [id number] Date of : [id number] Date of Exam: 1ETHONG Chacko [id number]#: Fax: [phone] EXAM: US ABDOMEN, LIMITED SINGLE [...] pyramids that mayreflect small calcifications.Accredited by the [employer] in General Ultrasound.Meng Childs, [...] is a former smoker [facility] ([employer] [facility]) Smoking 06/26/2021 12:00:00 AM EDT Patient is a former smoker completed Patient is a former smoker [facility] ([facility]) Tattoo/Piercing 01/13/2021 12:00:00 AM EDT Pierced ears completed Pi erced ears [facility] ([facility]) Tattoo/Piercing 01/13/2021 12:00:00 AM EDT Tattoo completed Tatt oo [facility] ([facility]) ETOH Use 01/13/2021 12:00:00 AM EDT Rarely consumes alcohol com pleted Rarely consumes alcohol [facility] ([facility] Smoking 01/13/2021 12:00:00 AM EDT Patient is a former smoker completed Patient is a former smoker [facility] ([facility] Vital Signs ID Date Data Source UNK Name Value Range Interpretation Code Description Data Source(s) Systolic blood pressure 122 mm[Hg] 122 mm[Hg] M EDENT ([employer] [facility] [facility]) Diastolic blood pressure 80 mm[Hg] 80 mm[Hg] [facility] ([employer] [facility]) Body height 59.75 [in_i] 59.75 [in_i] [facility] ([employer] [facility]) 4'11.75" Body weight 162.00 [lb_av] 162.00 [lb_av] MEDEN T ([employer]) Body mass index (BMI) [Ratio] 31.9 kg/m2 31.9 k g/m2 [facility] ([employer] [facility] [facility]) Body surface area Derived from formula 1.70 m2 1.70 m2 [facility] ([employer] [facility]) Body temperature 97.9 [degF] 97.9 [degF] [facility] ([facility] Body height 61 [in_i] 61 [in_i] [facility] ([facility]) 5'1" Body weight 166.00 [lb_av] 166.00 [lb_av] [facility] T ([facility]) Systolic blood pressure 144 mm[Hg] 144 mm[Hg] M EDENT ([facility]) Diastolic blood pressure 83 mm[Hg] 83 mm[Hg] [facility] ([facility]) Heart rate 61 /min 61 /min [facility] ([facility] Body mass index (BMI) [Ratio] 31.4 kg/m2 31.4 k g/m2 [facility] ([facility] Body weight 150.00 [lb_av] 150.00 [lb_av] MEDEN [...] [degF] [facility] ([facility]) Diastolic blood pressure 73 mm[Hg] 73 mm[Hg] [facility] ([facility]) Systolic blood pressure 119 mm[Hg] 119 mm[Hg] M EDENT ([facility]) Body mass index (BMI) [Ratio] 28.3 kg/m2 28.3 k g/m2 [facility] ([facility]) Heart rate 65 /min 65 /min [facility] ([facility]) Body temperature 97.4 [degF] 97.4 [degF] [facility] ([facility]) Body height 61 [in_i] 61 [in_i] [facility] ([facility]) 5'1" Body weight 150.00 [lb_av] 150.00 [lb_av] MEDEN T ([facility]) Patient Treatment Plan of Care Planned Activity Planned Date Details Description Data Source (s) Multiple Vitamins-Iron (MULTIVITAMIN WITH IRON) TABS 020 12:00:00 AM [facility]
--- NOTE | 2021-08-21 03:42 | REPVR ---
PROCEDURE INFORMATION: Exam: CT Abdomen and Pelvis without Contrast Exam date and time: 08/21/21 (2:29am) Age: 50 years old Clinical indication: Left flank pain TECHNIQUE: Imaging protocol: Computed tomography of the abdomen and pelvis without contrast Radiation optimization: All CT scans at this facility use at least one of these dose optimization techniques: automated exposure control; mA and/or kV adjustment per patient size (includes targeted exams where dose is matched to clinical indication); or iterative reconstruction. COMPARISON: US ABDOMEN (limited) of 07/02/21 FINDINGS: Liver: Normal. No solid mass. Gallbladder and bile ducts: Distended gallbladder, containing at least 2 calcified gallstones (each 5 mm size). No ductal dilatation. Pancreas: Normal. No ductal dilatation. Spleen: Normal. No splenomegaly. Adrenal glands: Normal. No mass. Kidneys and ureters: [id number] left hydronephrosis. Obstructing stone (5 x 3 mm size) at the left U-P junction. No distal ureteral stones are seen. Stomach and bowel: S/P stomach surgery. No bowel obstruction. No mucosal thickening. Appendix: A normal appendix is visualized. Intraperitoneal space: Unremarkable. No free air. No significant fluid collection. Vasculature: Scattered atherosclerotic calcifications of the abdominal aorta and iliac arteries. No abdominal aortic aneurysm. Lymph nodes: Unremarkable. No enlarged lymph nodes. Urinary bladder: Unremarkable as visualized. Reproductive: Unremarkable as visualized. Bones/joints: Unremarkable. No acute fracture. Soft tissues: Unremarkable. IMPRESSION: [id number] left hydronephrosis. Obstructing stone (5 x 3 mm size) at the left U-P junction. Distended gallbladder, containing at least 2 calcified gallstones (each 5 mm size). S/P stomach surgery. Electronically signed by: Tracie Arvizu On 08/21/2021 03:41:10 AM
== END 2021-08-21 03:50 | disposition left against medical advice (07) ==
LOC: M ED 02:10
DX: Z53.21 Procedure and treatment not carried out due to patient leaving prior to being seen by health care provider (principal)

== ENCOUNTER → 2022-01-20 | Outpatient (CLI) | payer BC, OTHER ==
[~2022-01-20] MED LIST changes: +EQL50TAB2 PO
[2022-01-20 08:06] LABS: HEMATOCRIT 42.5 % (36.0-47.0); HEMOGLOBIN 14.1 g/dl (12.0-15.5); MEAN CORPUSCULAR HEMOGLOBIN 28.7 pg (27.0-33.0); MEAN CORPUSCULAR HGB CONC 33.2 g/dl (32.0-36.5); MEAN CORPUSCULAR VOLUME 86.6 fl (80.0-96.0); PLATELET COUNT, AUTOMATED 273 10^3/uL (150-450); RED BLOOD COUNT 4.91 10^6/uL (4.00-5.40); WHITE BLOOD COUNT 7.5 10^3/uL (4.0-10.0)
[2022-01-20 08:35] LABS: ALT/SGPT 30 U/L (12-78); BILIRUBIN,TOTAL 0.3 MG/DL (0.2-1.0); BLOOD UREA NITROGEN 13 MG/DL (7-18); CALCIUM LEVEL 9.3 MG/DL (8.5-10.1); CARBON DIOXIDE LEVEL 30 MEQ/L (21-32); CHLORIDE LEVEL 108 MEQ/L (98-107); CHOLESTEROL LEVEL 161 MG/DL (<200); CHOLESTEROL RISK RATIO 3.156 (<5); CREATININE FOR GFR 0.71 MG/DL (0.55-1.30); GLOMERULAR FILTRATION RATE > 60.0 (>51); GLUCOSE, FASTING 81 MG/DL (70-100); HDL CHOLESTEROL 51 MG/DL (>40); IRON (FE) 72 UG/DL (50-170); LDL CHOLESTEROL 83 MG/DL (<100); NON-HDL-C 110 MG/DL; SODIUM LEVEL 143 MEQ/L (136-145); TOTAL PROTEIN 7.4 GM/DL (6.4-8.2); TRIGLYCERIDES LEVEL 137 MG/DL (<150)
[2022-01-20 08:59] LABS: HEMOGLOBIN A1c 5.2 %
[2022-01-20 10:29] LABS: TOTAL 25(OH) VITAMIN D 33.8 NG/ML (30.0-100.0)
== END ==
LOC: M LAB 06:59
PROVIDERS: ATTEND Family Medicine
DX: D64.9 Anemia, unspecified (principal); R53.83 Other fatigue; E03.9 Hypothyroidism, unspecified

== ENCOUNTER → 2022-01-20 | Outpatient (CLI) | payer BC, OTHER | LOC: M RAD 06:57 | PROVIDERS: ATTEND Internal Medicine Gastroenterology | DX: K80.20 Calculus of gallbladder without cholecystitis without obstruction (principal); K75.81 Nonalcoholic steatohepatitis (NASH) ==

== ENCOUNTER → 2022-06-16 | Outpatient (CLI) | payer BC, OTHER ==
[~2022-06-16] MED LIST changes: -TRIA37.53; +TRIA37.577
== END ==
LOC: M RAD 07:04
PROVIDERS: ATTEND Internal Medicine Gastroenterology
DX: K80.20 Calculus of gallbladder without cholecystitis without obstruction (principal); K75.81 Nonalcoholic steatohepatitis (NASH); R10.11 Right upper quadrant pain

== ENCOUNTER → 2022-06-23 | Outpatient (CLI) | payer BC, OTHER | LOC: M WHC 07:46 | PROVIDERS: ATTEND Family Medicine | DX: Z12.31 Encounter for screening mammogram for malignant neoplasm of breast (principal) ==

== ENCOUNTER → 2023-01-29 | Outpatient (CLI) | payer BC, OTHER ==
[2023-01-29 09:37] LABS: HEMATOCRIT 44.6 % (36.0-47.0); HEMOGLOBIN 14.8 g/dl (12.0-15.5); MEAN CORPUSCULAR HEMOGLOBIN 28.3 pg (27.0-33.0); MEAN CORPUSCULAR HGB CONC 33.2 g/dl (32.0-36.5); MEAN CORPUSCULAR VOLUME 85.3 fl (80.0-96.0); PLATELET COUNT, AUTOMATED 300 10^3/uL (150-450); RED BLOOD COUNT 5.23 10^6/uL (4.00-5.40); WHITE BLOOD COUNT 7.3 10^3/uL (4.0-10.0)
[2023-01-29 09:49] LABS: HEMOGLOBIN A1c 5.2 % (4.0-6.0)
[2023-01-29 10:05] LABS: ALKALINE PHOSPHATASE 121 U/L (46-116); ALT/SGPT 24 U/L (7.0-40); AST/SGOT 10 U/L (<34); BILIRUBIN,TOTAL 0.3 MG/DL (0.3-1.2); BLOOD UREA NITROGEN 15 MG/DL (9-23); CALCIUM LEVEL 9.2 MG/DL (8.5-10.1); CARBON DIOXIDE LEVEL 26 MMOL/L (20-31); CHLORIDE LEVEL 108 MMOL/L (98-107); CHOLESTEROL LEVEL 173 MG/DL (<200); CHOLESTEROL RISK RATIO 3.54 (<5); CREATININE FOR GFR 0.79 MG/DL (0.55-1.30); GLOMERULAR FILTRATION RATE > 60.0 (>51); GLUCOSE, FASTING 90 MG/DL (60-100); HDL CHOLESTEROL 48.8 MG/DL (>40); LDL CHOLESTEROL 90.2 MG/DL (<100); NON-HDL-C 124.2 MG/DL; POTASSIUM SERUM 4.3 MMOL/L (3.5-5.1); SODIUM LEVEL 140 MMOL/L (136-145); TOTAL PROTEIN 7.3 G/DL (5.7-8.2); TRIGLYCERIDES LEVEL 170 MG/DL (<150)
[2023-01-29 10:07] LABS: TOTAL 25(OH) VITAMIN D 43.5 NG/ML (20.0-100.0)
[2023-01-29 10:08] LABS: THYROID STIMULATING HORMONE 0.577 uIU/ML (0.55-4.78)
== END ==
LOC: M RAD 08:49
PROVIDERS: ATTEND Family Medicine
DX: R53.83 Other fatigue (principal); I10 Essential (primary) hypertension; E03.9 Hypothyroidism, unspecified

== ENCOUNTER → 2023-03-08 | Outpatient (CLI) | payer BC, OTHER ==
[2023-03-08 10:19] LABS: HEMATOCRIT 44.4 % (36.0-47.0); HEMOGLOBIN 14.6 g/dl (12.0-15.5); MEAN CORPUSCULAR HEMOGLOBIN 28.6 pg (27.0-33.0); MEAN CORPUSCULAR HGB CONC 32.9 g/dl (32.0-36.5); MEAN CORPUSCULAR VOLUME 87.1 fl (80.0-96.0); PLATELET COUNT, AUTOMATED 274 10^3/uL (150-450); WHITE BLOOD COUNT 6.9 10^3/uL (4.0-10.0)
[2023-03-08 10:30] LABS: INR 0.86; PROTHROMBIN TIME 11.9 SECONDS (12.5-14.5)
[2023-03-08 10:31] LABS: PARTIAL THROMBOPLASTIN TIME 31.1 SECONDS (24.8-34.2)
[2023-03-08 10:46] LABS: ALBUMIN 4.4 G/DL (3.2-5.2); ALKALINE PHOSPHATASE 121 U/L (46-116); ALT/SGPT 26 U/L (7.0-40); AST/SGOT 22 U/L (<34); BILIRUBIN,TOTAL 0.4 MG/DL (0.3-1.2); BLOOD UREA NITROGEN 13 MG/DL (9-23); CALCIUM LEVEL 9.3 MG/DL (8.5-10.1); CARBON DIOXIDE LEVEL 29 MMOL/L (20-31); CHLORIDE LEVEL 107 MMOL/L (98-107); GLOMERULAR FILTRATION RATE > 60.0 (>51); GLUCOSE, FASTING 88 MG/DL (60-100); POTASSIUM SERUM 4.1 MMOL/L (3.5-5.1); SODIUM LEVEL 142 MMOL/L (136-145); TOTAL PROTEIN 7.6 G/DL (5.7-8.2)
== END ==
LOC: M RAD 09:38
PROVIDERS: ATTEND Internal Medicine Gastroenterology
DX: K75.81 Nonalcoholic steatohepatitis (NASH) (principal); K80.20 Calculus of gallbladder without cholecystitis without obstruction

== ENCOUNTER → 2024-01-24 | Outpatient (CLI) | payer BC ==
[2024-01-24 07:47] LABS: HEMATOCRIT 45.1 % (36.0-47.0); HEMOGLOBIN 15.1 g/dl (12.0-15.5); MEAN CORPUSCULAR HEMOGLOBIN 28.3 pg (27.0-33.0); MEAN CORPUSCULAR HGB CONC 33.5 g/dl (32.0-36.5); MEAN CORPUSCULAR VOLUME 84.6 fl (80.0-96.0); PLATELET COUNT, AUTOMATED 312 10^3/uL (150-450); RED BLOOD COUNT 5.33 10^6/uL (4.00-5.40); WHITE BLOOD COUNT 6.9 10^3/uL (4.0-10.0)
[2024-01-24 08:12] LABS: HEMOGLOBIN A1c 5.2 % (4.0-6.0)
[2024-01-24 08:17] LABS: ALKALINE PHOSPHATASE 128 U/L (46-116); ALT/SGPT 31 U/L (7.0-40); AST/SGOT 23 U/L (<34); BILIRUBIN,TOTAL 0.5 MG/DL (0.3-1.2); BLOOD UREA NITROGEN 18 MG/DL (9-23); CALCIUM LEVEL 9.8 MG/DL (8.5-10.1); CARBON DIOXIDE LEVEL 28 MMOL/L (20-31); CHLORIDE LEVEL 102 MMOL/L (98-107); CHOLESTEROL LEVEL 261 MG/DL (<200); CHOLESTEROL RISK RATIO 5.94 (<5); CREATININE FOR GFR 0.86 MG/DL (0.55-1.30); GLOMERULAR FILTRATION RATE > 60.0 (>51); GLUCOSE, FASTING 88 MG/DL (60-100); HDL CHOLESTEROL 43.9 MG/DL (>40); IRON (FE) 87 UG/DL (50-170); LDL CHOLESTEROL 173.3 MG/DL (<100); NON-HDL-C 217.1 MG/DL; PERCENT SATURATION 23.5 % (13.2-45.0); POTASSIUM SERUM 3.7 MMOL/L (3.5-5.1); SODIUM LEVEL 137 MMOL/L (136-145); TOTAL IRON BINDING CAPACITY 371 UG/DL (250-425); TOTAL PROTEIN 7.5 G/DL (5.7-8.2); TRIGLYCERIDES LEVEL 219 MG/DL (<150)
[2024-01-24 08:19] LABS: THYROID STIMULATING HORMONE 1.188 uIU/ML (0.55-4.78); TOTAL 25(OH) VITAMIN D 27.7 NG/ML (20.0-100.0)
== END ==
LOC: M RAD 07:06
PROVIDERS: ATTEND Family Medicine
DX: I10 Essential (primary) hypertension (principal); R53.83 Other fatigue; E03.9 Hypothyroidism, unspecified

== ENCOUNTER → 2024-03-01 | Outpatient (REF) | payer BC ==
[2024-03-05 15:11] LABS: HPV APTIMA Negative (Negative)
== END ==
LOC: M SFHCWAGY 13:09
PROVIDERS: ATTEND Nurse Practitioner Family
DX: Z12.4 Encounter for screening for malignant neoplasm of cervix (principal); N95.2 Postmenopausal atrophic vaginitis
CPT/HCPCS: 87624; G0123

== ENCOUNTER → 2024-10-16 | Outpatient (CLI) | payer BC ==
[2024-10-16 07:57] LABS: HEMOGLOBIN 14.2 g/dl (12.0-15.5); MEAN CORPUSCULAR HEMOGLOBIN 28.6 pg (27.0-33.0); MEAN CORPUSCULAR HGB CONC 33.8 g/dl (32.0-36.5); MEAN CORPUSCULAR VOLUME 84.5 fl (80.0-96.0); PLATELET COUNT, AUTOMATED 294 10^3/uL (150-450); RED BLOOD COUNT 4.97 10^6/uL (4.00-5.40); WHITE BLOOD COUNT 7.8 10^3/uL (4.0-10.0)
[2024-10-16 08:11] LABS: ALBUMIN 3.9 G/DL (3.2-5.2); ALKALINE PHOSPHATASE 109 U/L (35-104); ALT/SGPT 22 U/L (7.0-40); AST/SGOT 20 U/L (<34); BILIRUBIN,TOTAL 0.4 MG/DL (0.3-1.2); BLOOD UREA NITROGEN 17 MG/DL (9-23); CALCIUM LEVEL 9.2 MG/DL (8.5-10.1); CARBON DIOXIDE LEVEL 28 MMOL/L (20-31); CHLORIDE LEVEL 107 MMOL/L (98-107); CHOLESTEROL LEVEL 192 MG/DL (<200); CHOLESTEROL RISK RATIO 3.99 (<5); CREATININE FOR GFR 0.76 MG/DL (0.55-1.30); GLOMERULAR FILTRATION RATE > 60.0 (>51); GLUCOSE, FASTING 93 MG/DL (60-100); HDL CHOLESTEROL 48.1 MG/DL (>40); LDL CHOLESTEROL 100.5 MG/DL (<100); NON-HDL-C 143.9 MG/DL; SODIUM LEVEL 143 MMOL/L (136-145); TOTAL PROTEIN 7.2 G/DL (5.7-8.2); TRIGLYCERIDES LEVEL 217 MG/DL (<150)
[2024-10-16 08:13] LABS: THYROID STIMULATING HORMONE 2.706 uIU/ML (0.55-4.78); TOTAL 25(OH) VITAMIN D 79.4 NG/ML (20.0-100.0)
[2024-10-16 09:40] LABS: HEMOGLOBIN A1c 5.5 % (4.0-6.0)
== END ==
LOC: M RAD 06:35 → M LAB 06:35
PROVIDERS: ATTEND Family Medicine
DX: R53.83 Other fatigue (principal); I10 Essential (primary) hypertension

== ENCOUNTER → 2025-07-03 | Outpatient (REF) | payer BC ==
[~2025-07-03] MED LIST changes: -EQL50TAB2 PO; +VITA1TAB82 PO
== END ==
LOC: M SFHCPLAZ 11:48
PROVIDERS: ATTEND Family Medicine
DX: R53.83 Other fatigue (principal); E03.9 Hypothyroidism, unspecified; E78.00 Pure hypercholesterolemia, unspecified; E53.8 Deficiency of other specified B group vitamins